=== PATIENT | female | born 1980 | race African-American/Black ===

== ENCOUNTER 2017-03-14 13:44 | Inpatient (IN) ==
--- NOTE | 2017-03-14 14:46 | Ultrasound Report ---
Exam: US OB biophysical profile Date: 03/14/2017 1:55 PM Comparison: None Indication: Increased blood pressure hypertension Findings: Fetus in the vertex presentation with a posterior placenta. heart rate 126 bpm JASMINE is 10 cm breathin movement:2 tone:2 Qualitative amniotic fluid volume:2 Impression: 1. Normal biophysical profile score 8 of 8 Ultrasound images were stored and captured PROCEDURE INTERPRETED AT [facility] DEPARTMENT OF RADIOLOGY Final Report Signed by: Dr. Kelechi Blackwell
[2017-03-14 16:01] LABS: Basophils % 0.2 % (0.0-0.8); Hemoglobin 9.1 GM/DL (12.0-16.0); Immature Granulocytes % 0.6 %; Immature Granulocytes Absolute 0.07 #; Lymphocytes # 0.6 10*3/uL (1.4-4.0); Lymphocytes % 5.2 % (21.3-54.2); Mean Corpuscular Hemoglobin 34 PG (27-34); Mean Corpuscular Volume 97.4 FL (87-102); Mean Platelet Volume 10.7 FL (9.6-12.0); Monocytes # 0.1 10*3/uL (0.11-0.8); Neutrophils # 10.7 10*3/uL (1.4-7.4); Platelet Count 110 T/CUMM (130-400); Red Blood Count 2.67 MC/CUMM (3.8-5.5); Red Cell Distribution Width 13.7 % (9.3-17.3); White Blood Count 11.5 T/CUMM (4-12)
[2017-03-14 16:10] LABS: Apearance,Urine CLOUDY (Clear); Bacteria,Urine Occasional /HPF (Few); Bilirubin,Urine Negative (Negative); Blood, Urine Large mg/dL (Negative); Glucose,Urine (UA) 50 mg/dL (Negative); Ketones,Urine 20 mg/dL (Negative); Mucus,Urine Occasional /LPF (Occasional); Nitrite,Urine Negative (Negative); Protein,Urine >=500 MG/DL; RBC,Urine 85 /HPF (0-4); Squamous Epithelial Cell,Urine Few /HPF (0-10); Urine Color Yellow (Yellow); Urine Specific Gravity 1.012 (1.001-1.035); Urine Urobilinogen < 2.0 EU/DL (0.2-1.0); WBC,Urine 44 /HPF (0-6)
[2017-03-14 16:22] LABS: Lymphocytes 6 % (20-55); Platelet Estimate Decreased; Poikilocytosis Slight; Segmented Neutrophils 92 % (50-85); Tear Drop Cells Slight; Total Cells Counted 100
[2017-03-14 16:32] LABS: INR 0.9; PT Patient Result 9.6 SECS; Partial Thromboplastin Time 26.5 SECS (0-40)
[2017-03-14 16:37] LABS: Albumin 2.7 G/DL (3.4-5.0); Bilirubin,Total 0.5 MG/DL (0.2-1.0); Calcium 8.5 MG/DL (8.5-10.1); Total Protein 6.4 G/DL (6.4-8.3)
[2017-03-14 16:38] LABS: Osmolality,Calculated 272.7 MOS/KG (273-304); Potassium 3.4 MMOL/L (3.5-5.1); Uric Acid 5.4 MG/DL (2.6-6.0)
--- NOTE | 2017-03-14 16:42 | Ultrasound Report ---
Exam: US OB >= 14 weeks fetus Date: 03/14/2017 3:22 PM Indication: Elevated blood pressure Comparison: Prior OB ultrasound dated 03/14/2017 at 2:13 PM Findings: Single fetus in cephalic presentation with cardiac activity. Heart rate is regular at 1 34 bpm. Placenta is posterior with no previa. Amniotic fluid index = 13.7 cm, which is normal BPD: 7.9 cm; 32/0 Head circumference: 30.05 cm; 33/2 Abdominal circumference: 27.75 cm; 21/6 Femur length: 6.44 cm; 33/2 Estimated weight: 1970 g (4 lbs. 5 oz.) this corresponds to the 3rd percentile for growth Cervical length: Not measured structures: Spine, stomach bubble, kidneys, bladder and cord insertion appear within normal limits. No/lips/profile and four-chamber cardiac view were not well evaluated/imaged. Maternal ovaries not visualized. Ultrasound images were captured and stored. Impression: 1. Intrauterine fetus with cardiac activity. Estimated gestational age by today's ultrasound of 34 weeks 4 days and due date of 05/05/2017. Reported gestational age 36 weeks 0 days and due date of 04/11/2017. This corresponds to a 24 day discrepancy suggestive of small for gestational age/IUGR. Continued close clinical and imaging follow-up is recommended. 2. Normal amniotic fluid volume. 3. structural survey as detailed above. PROCEDURE INTERPRETED AT [facility] DEPARTMENT OF RADIOLOGY Final Report Signed by: Kofi Harkins
[2017-03-14] MEDS: LACTATED RINGERS 1,000 ML IV SCH (21:28)
[2017-03-14] MEDS: LABETALOL 100 MG TABLET PO SCH ×2 (21:29)
[2017-03-15] MEDS: LACTATED RINGERS 1,000 ML IV SCH ×2 (04:23→11:32)
[2017-03-15 06:13] LABS: Basophils % 0.1 % (0.0-0.8); Hematocrit 23.3 VOL% (35.7-47.0); Hemoglobin 8.1 GM/DL (12.0-16.0); Immature Granulocytes % 0.8 %; Immature Granulocytes Absolute 0.12 #; Lymphocytes # 1.2 10*3/uL (1.4-4.0); Lymphocytes % 8.5 % (21.3-54.2); Mean Corpuscular HGB Conc 34.8 GM/DL (32-36); Mean Corpuscular Hemoglobin 34 PG (27-34); Mean Corpuscular Volume 96.7 FL (87-102); Monocytes # 0.8 10*3/uL (0.11-0.8); Monocytes % 5.4 % (1.7-12.7); Neutrophils # 12.2 10*3/uL (1.4-7.4); Neutrophils % 85.2 % (38.7-73.9); Platelet Count 100 T/CUMM (130-400); Red Blood Count 2.41 MC/CUMM (3.8-5.5); Red Cell Distribution Width 13.8 % (9.3-17.3); White Blood Count 14.4 T/CUMM (4-12)
[2017-03-15 06:28] LABS: Partial Thromboplastin Time 25.3 SECS (0-40)
[2017-03-15 06:31] LABS: Giant Platelets Few; Hypochromasia 1+; Platelet Estimate Decreased
[2017-03-15 06:38] LABS: Albumin 2.2 G/DL (3.4-5.0); Bilirubin,Total 0.4 MG/DL (0.2-1.0); Calcium 7.8 MG/DL (8.5-10.1); Osmolality,Calculated 276.5 MOS/KG (273-304); Potassium 3.2 MMOL/L (3.5-5.1); Total Protein 5.3 G/DL (6.4-8.3); Uric Acid 5.5 MG/DL (2.6-6.0)
--- NOTE | 2017-03-15 07:23 | Ultrasound Report ---
Exam: US OB biophysical profile Date: 03/15/2017 8:30 AM Comparison: 03/14/2017 Indication: Elevated blood pressure Findings: Fetus in vertex presentation with posterior placenta present. JASMINE 10.1 cm heart rate 132 bpm breathin movement:2 tone:2 Qualitative amniotic fluid volume:2 Impression: 1. Normal biophysical profile score 8 of 8 Ultrasound images were stored and captured PROCEDURE INTERPRETED AT [facility] DEPARTMENT OF RADIOLOGY Final Report Signed by: Dr. Kelechi Blackwell
[2017-03-15] MEDS: LABETALOL 100 MG TABLET PO SCH ×2 (08:23→20:17)
[2017-03-15] MEDS ORDERED: BUTORPHANOL 2 MG/ML VIAL IV PRN (09:35)
[2017-03-15] MEDS ORDERED: MEPERIDINE 50 MG/1 ML VIAL IV PRN (09:35)
[2017-03-15] MEDS ORDERED: ONDANSETRON 4 MG/2 ML VIAL IV PRN ×2 (09:35→14:11)
--- NOTE | 2017-03-15 09:59 | OB/GYN History & Physical ---
History of Present Illness Chief complaint: Sent from clinic for evaluation of elevated blood pressures History of present illness: Ms. Javed is a 36 year old female 8 para [id number] that presented all yesterday at 34.3 weeks gestation for evaluation of elevated blood pressures. She has a EDC of 04/22/2017 based on a 27.1 week ultrasound which she is 34.4 weeks gestation today. Her records are current, available, reviewed, and up-to- date. She was noted to have pitting edema all yesterday. She did have 3+ urine protein noted on dipstick yesterday. She was sent for overnight observation and 24-hour urine. During the night she proceeded to continue to have elevated blood pressures despite of being on labetalol 100 mg p.o. twice daily. She has 3+ pitting edema today. Increasing uric acid with a decrease in platelet count was noted on labs this morning. Her platelet count this morning was 100 which is a drop from 110 on yesterday. H&H 8.1 and 23.3 on today. Uric acid 5.5 which is an increase from 5.[address] George and she recommended to proceed with delivery secondary to preeclampsia. During the course of her she did receive late care initiating care at approximately 7 weeks gestation. Patient admitted to smoking marijuana during the course of her . She did have a low vitamin D level in which she was taken 50,000 units of vitamin D weekly in addition to 5000 units of vitamin D daily. She admitted to a history of smoking cigarettes and marijuana during the course of her , she is advanced maternal age, received late care, she did follow up with Dr. Iqbal for maternal medicine secondary to advanced maternal age patient has a long- standing history of depression secondary to loss of 1 of her children's father in a recent loss of her mother. She was referred to follow-up with counseling and started on Wellbutrin which the patient did not start the Wellbutrin or proceed to follow-up for any counseling. She did have anemia during the course of her which was done on ferrous sulfate 325 minutes p.o. 3 times daily and increase iron rich foods in her diet. She did receive her initial dose of Celestone yesterday. Labs: Blood type a positive; antibody screen negative; rubella immune; VDRL nonreactive; urine culture negative; HBsAg negative; HIV negative; GC negative; chlamydia negative; vitamin D level 7.2; urine drug screen positive for cannabinoids; 1 hour GTT 107; group beta strep pending A: IUP at 34.4 weeks gestation, category 1 heart rate tracing, preeclampsia, history of smoking, history of marijuana use, advanced maternal age, history of depression untreated, vitamin D deficiency, anemia, 3+ edema, artificial rupture of membranes with clear fluid noted. Insertion of intrauterine pressure catheter, thrombocytopenia P: Consult the Dr. [id number] to proceed with induction of labor secondary to preeclampsia. Patient informed of plan of care, explaining induction secondary to preeclampsia and will obtain a urine drug screen. Questions answered to desired level of satisfaction. We will begin induction with Pitocin per protocol. Urine drug screen obtained. Admission labs are obtained. Patient agreed with plan of care. Ampicillin 2 g will be initiated IV piggyback initially and will follow with 1 g every 4 hours until delivery. Give second dose of Celestone this morning. Home Medications Medication Instructions Recorded Confirmed Type Cholecalciferol (Vitamin D3) 5,000 unit PO DAILY 03/14/17 03/14/17 History [Vitamin D3] Ergocalciferol (Vitamin D2) 50,000 unit PO Q7DAY 03/14/17 03/14/17 History [Vitamin D2] Vit No.124/Iron/Folic 1 tablet PO DAILY 03/14/17 03/14/17 History [ Vitamin Tablet] Allergies Allergy/AdvReac Type Severity Reaction Status Date / Time No Known Allergies Allergy Verified 03/14/17 13:55 12 point system: reviewed and no additional remarkable complaints except as stated Medical,Surgical,& Family Hx - Medical History Psychological: History of: Depression - Surgical History Surgical History: noncontributory Reproductive Surgeries: Patient denies;: Gynecologic Surgery - Family History Family History: Reports;: Family Diabetes (mother), Family Hypertension (mother) , Family Stroke (mother) - Social History Smoking Status: Current every day smoker Have you smoked in the last 12 months: Yes (Multiple cigarettes per day) Frequency of Alcohol Use: None Type of Drug Use: Marijuana Marital Status: Single Lives With:: Children Functional capacity: independent ambulation Exam [employer] - Constitutional Vitals: Vital Signs Temp Pulse Resp BP Pulse Ox 03/15/17 09:25 97.8 F 109 H 20 170/96 100 03/15/17 04:00 98.0 F 79 18 128/64 03/15/17 00:00 83 18 134/60 03/14/17 20:00 97.8 F 93 H 18 131/68 03/14/17 16:00 73 20 163/87 General appearance: no acute distress - Antepartum / Post Antepartum Exam Cervix - Dilatation: 3 cm Effacement: 50% Station: 0 Rupture: Artificial rupture membranes with family, clear fluid noted Presentation: Vertex Heart Rate: 130s with spontaneous variability, BPP today 8 out of 8 [place]: Occasional, 30 seconds, mild. IUPC inserted without difficulty Breast: bilateral: normal Abdomen obstetrics: Present: bowel sounds normal Vagina: Present: normal moisture Cervix: Present: normal Uterus exam: Present: enlarged (Gravid, soft uterine tone is noted between contractions, estimated weight 4.5-5 pounds) Adnexa: bilateral: normal Anus/Rectum: Present: normal perianal skin - Head Head exam: Present: normal inspection - Neck Neck exam: Present: normal inspection - Respiratory Respiratory exam: Present: clear to auscultation bilaterally - Cardiovascular Cardiovascular exam: Present: regular rate and rhythm - GI/Abdominal GI/Abdominal exam: Present: normal bowel sounds - Extremities Exam Extremities exam: Present: normal inspection, normal capillary refill - Back Exam Back exam: Present: normal inspection - Neurological Exam Neurological exam: Present: alert, oriented X3, normal gait - Psychiatric Psychiatric exam: Present: normal affect, depressed - Skin Skin exam: Present: normal color, warm, dry Assessment and Plan (1) Advanced maternal age in multigravida Status: Acute Current Visit: Yes (2) Anemia affecting eighth Status: Acute Current Visit: Yes (3) Preeclampsia Status: Acute Current Visit: Yes (4) Vitamin D deficiency Status: Acute Current Visit: Yes (5) History of marijuana use Status: Acute Current Visit: Yes (6) Smoker Status: Acute Current Visit: Yes (7) Late onset care Status: Acute Current Visit: Yes (8) Group beta strep unknown Status: Acute Current Visit: Yes (9) Proteinuria affecting Status: Acute Current Visit: Yes (10) Proteinuria Status: Acute Current Visit: Yes (11) Thrombocytopenia affecting Status: Acute Current Visit: Yes (12) Depression Status: Acute Current Visit: Yes Results - Labs CBC & BMP: 03/15/17 05:35 03/15/17 05:35 Labs: Laboratory Tests 03/14/17 03/14/17 03/14/17 14:47 15:55 15:55 WBC 11.5 RBC 2.67 L Hgb 9.1 L Hct 26.0 L MCV 97.4 MCH 34 MCHC 35.0 RDW 13.7 Plt Count 110 L MPV 10.7 Neut % (Auto) 93.0 H Lymph % (Auto) 5.2 L [place] % (Auto) 1.0 L Eos % (Auto) 0.0 Baso % (Auto) 0.2 Neut # (Auto) 10.7 H Lymph # (Auto) 0.6 L [place] # (Auto) 0.1 L Eos # (Auto) 0.0 Baso # (Auto) 0.0 Total Counted 100 Immature Gran % 0.6 Nucleated RBC % 0.0 Immature Gran # 0.07 Segmented Neutrophils 92 H Lymphocytes 6 L Monocytes 2 Nucleated RBCs # 0.00 Platelet Estimate Decreased Giant Platelets Immature Plt Fraction 0.0 Hypochromasia Poikilocytosis Slight Tear Drop Cells Slight Morphology Comment INR 0.9 PT Patient/Control Mix 9.6 Fibrinogen 357 Circ Anticoag PTT 26.5 Sodium Potassium Chloride Carbon Dioxide Anion Gap BUN Creatinine GFR Calculation BUN/Creatinine Ratio Glucose Calculated Osmolality Uric Acid Calcium Total Bilirubin AST ALT Alkaline Phosphatase Total Protein Albumin Globulin Albumin/Globulin Ratio Urine Color Yellow Urine Appearance Cloudy Urine pH 5.0 Ur Specific [place] 1.012 Urine Protein >=500 Urine Glucose (UA) 50 Urine Ketones 20 Urine Blood Large Urine Nitrate Negative Urine Bilirubin Negative Urine Urobilinogen < 2.0 H Urine Leukocytes Trace Urine RBC 85 Urine WBC 44 Ur Squamous Epith Cells Few Urine Bacteria Occasional Urine Mucus Occasional Urine Yeast (Budding) Occasional Ur Culture Indicated? Results to follow 03/14/17 03/15/17 03/15/17 15:55 05:35 05:35 WBC 14.4 H RBC 2.41 L Hgb 8.1 L Hct 23.3 L MCV 96.7 MCH 34 MCHC 34.8 RDW 13.8 Plt Count 100 L MPV 12.0 Neut % (Auto) 85.2 H Lymph % (Auto) 8.5 L [place] % (Auto) 5.4 Eos % (Auto) 0.0 Baso % (Auto) 0.1 Neut # (Auto) 12.2 H Lymph # (Auto) 1.2 L [place] # (Auto) 0.8 Eos # (Auto) 0.0 Baso # (Auto) 0.0 Total Counted Immature Gran % 0.8 Nucleated RBC % 0.0 Immature Gran # 0.12 Segmented Neutrophils Lymphocytes Monocytes Nucleated RBCs # 0.00 Platelet Estimate Decreased Giant Platelets Few Immature Plt Fraction 9.8 H Hypochromasia 1+ Poikilocytosis Tear Drop Cells Morphology Comment INR 1.0 PT Patient/Control Mix 10.0 Fibrinogen 306 Circ Anticoag PTT 25.3 Sodium 138 Potassium 3.4 L Chloride 105 Carbon Dioxide 25 Anion Gap 11.4 BUN 8 Creatinine 1.00 GFR Calculation 90 BUN/Creatinine Ratio 8.00 Glucose 96 Calculated Osmolality 272.7 L Uric Acid 5.4 Calcium 8.5 Total Bilirubin 0.50 AST 28 ALT 30 Alkaline Phosphatase 100 Total Protein 6.4 Albumin 2.7 L Globulin 3.7 H Albumin/Globulin Ratio 0.7 L Urine Color Urine Appearance Urine pH Ur Specific [place] Urine Protein Urine Glucose (UA) Urine Ketones Urine Blood Urine Nitrate Urine Bilirubin Urine Urobilinogen Urine Leukocytes Urine RBC Urine WBC Ur Squamous Epith Cells Urine Bacteria Urine Mucus Urine Yeast (Budding) Ur Culture Indicated? 03/15/17 05:35 WBC RBC Hgb Hct MCV MCH MCHC RDW Plt Count MPV Neut % (Auto) Lymph % (Auto) [place] % (Auto) Eos % (Auto) Baso % (Auto) Neut # (Auto) Lymph # (Auto) [place] # (Auto) Eos # (Auto) Baso # (Auto) Total Counted Immature Gran % Nucleated RBC % Immature Gran # Segmented Neutrophils Lymphocytes Monocytes Nucleated RBCs # Platelet Estimate Giant Platelets Immature Plt Fraction Hypochromasia Poikilocytosis Tear Drop Cells Morphology Comment INR PT Patient/Control Mix Fibrinogen Circ Anticoag PTT Sodium 139 Potassium 3.2 L Chloride 100 Carbon Dioxide 21 Anion Gap 21.2 H BUN 11 Creatinine 1.00 GFR Calculation 90 BUN/Creatinine Ratio 11.00 Glucose 109 H Calculated Osmolality 276.5 Uric Acid 5.5 Calcium 7.8 L Total Bilirubin 0.40 AST 19 ALT 21 Alkaline Phosphatase 80 Total Protein 5.3 L Albumin 2.2 L Globulin 3.1 Albumin/Globulin Ratio 0.7 L Urine Color Urine Appearance Urine pH Ur Specific [place] Urine Protein Urine Glucose (UA) Urine Ketones Urine Blood Urine Nitrate Urine Bilirubin Urine Urobilinogen Urine Leukocytes Urine RBC Urine WBC Ur Squamous Epith Cells Urine Bacteria Urine Mucus Urine Yeast (Budding) Ur Culture Indicated?
[2017-03-15] MEDS ORDERED: LACTATED RINGERS 1,000 ML IV SCH (10:00)
[2017-03-15] MEDS ORDERED: OXYTOCIN/LR 20 UNIT/1,000 ML BAG IV SCH (10:00)
[2017-03-15] MEDS ORDERED: AMPICILLIN INJ 2,000 MG in SODIUM CHLORIDE 0.9% 100 ML IV ONE (10:00)
[2017-03-15] MEDS ORDERED: BETAMETH SODIUM PHOS/ACETATE 30 MG/5 ML VIAL IM ONE (10:21)
[2017-03-15 10:36] LABS: Barbiturates Screen,Urine Negative (Negative); Benzodiazepines Screen,Urine Negative (Negative); Cannabinoid Screen,Urine Positive (Negative); Opiate Screen,Urine Negative (Negative); Phencyclidine Screen,Urine Negative (Negative)
[2017-03-15] MEDS ORDERED: LIDOCAINE 1% 50 ML VIAL ONE (13:36)
[2017-03-15] MEDS ORDERED: miSOPROStol 200 MCG TABLET ONE (13:37)
[2017-03-15] MEDS ORDERED: AMPICILLIN INJ 1,000 MG in SODIUM CHLORIDE 0.9% 100 ML IV SCH (14:00)
--- NOTE | 2017-03-15 14:09 | Operative Note ---
Date of procedure: 03/15/17 Pre-op diagnosis: IUP at 34.4 weeks, preeclampsia, advanced maternal age, smoker Post-op diagnosis: other (Normal spontaneous vaginal delivery) Procedure: Patient received right lateral side-lying position. Patient was then placed in dorsal lithotomy position. Patient then placed in stirrups, draped and prepped. At 1345, head delivered in MADYSON position, nuchal cord 1 noted and unable to reduce the nuchal cord. Baby was somersaulted through the cord. Anterior then posterior shoulders were delivered easily without difficulty. delivered in usual fashion and secured with good tone and cry noted. Mouth and nose bulb suctioned. Milking of the cord performed, cord gases obtained, cord doubly clamped and cut. Female placed in radiant warmer and attended by nursery nurses. At 1348, spontaneous delivery of placenta via Cami position, with 3 vessel cord noted, normal cord insertion, with minimal calcifications, small placenta noted. Hemostasis maintained with fundal massage and Pitocin 20 units in 1000 cc of lactated Ringer's. Uterine suite performed with small clots removed. Uterus remains firm with minimal bleeding noted. Perineum inspected and noted intact without any lacerations noted. Female with Apgars 9 and 9 weighing 4 pounds and 2 ounces at 1865 grams. Mother and baby stable. Female taken to intensive care unit. Mother desires to bottle feed. Anesthesia: none Surgeon / Physician: Jennifer Lowry Estimated blood loss: minimal (150cc) Specimens: other (Placenta to pathology secondary to advanced maternal age, preeclampsia, and late care, group beta strep unknown, smoker, history of marijuana use) Condition: stable Disposition: floor Results - Labs CBC & BMP: 03/15/17 05:35 03/15/17 05:35 Labs: Laboratory Tests 03/14/17 03/14/17 03/14/17 14:47 15:55 15:55 WBC 11.5 RBC 2.67 L Hgb 9.1 L Hct 26.0 L MCV 97.4 MCH 34 MCHC 35.0 RDW 13.7 Plt Count 110 L MPV 10.7 Neut % (Auto) 93.0 H Lymph % (Auto) 5.2 L [place] % (Auto) 1.0 L Eos % (Auto) 0.0 Baso % (Auto) 0.2 Neut # (Auto) 10.7 H Lymph # (Auto) 0.6 L [place] # (Auto) 0.1 L Eos # (Auto) 0.0 Baso # (Auto) 0.0 Total Counted 100 Immature Gran % 0.6 Nucleated RBC % 0.0 Immature Gran # 0.07 Segmented Neutrophils 92 H Lymphocytes 6 L Monocytes 2 Nucleated RBCs # 0.00 Platelet Estimate Decreased Giant Platelets Immature Plt Fraction 0.0 Hypochromasia Poikilocytosis Slight Tear Drop Cells Slight Morphology Comment INR 0.9 PT Patient/Control Mix 9.6 Fibrinogen 357 Circ Anticoag PTT 26.5 Sodium Potassium Chloride Carbon Dioxide Anion Gap BUN Creatinine GFR Calculation BUN/Creatinine Ratio Glucose Calculated Osmolality Uric Acid Calcium Total Bilirubin AST ALT Alkaline Phosphatase Total Protein Albumin Globulin Albumin/Globulin Ratio Urine Color Yellow Urine Appearance Cloudy Urine pH 5.0 Ur Specific [place] 1.012 Urine Protein >=500 Urine Glucose (UA) 50 Urine Ketones 20 Urine Blood Large Urine Nitrate Negative Urine Bilirubin Negative Urine Urobilinogen < 2.0 H Urine Leukocytes Trace Urine RBC 85 Urine WBC 44 Ur Squamous Epith Cells Few Urine Bacteria Occasional Urine Mucus Occasional Urine Yeast (Budding) Occasional Ur Culture Indicated? Results to follow Urine Opiates Screen Ur Barbiturates Screen Ur Phencyclidine Scrn U Amphetamine/Methamph U Benzodiazepines Scrn U Cocaine Metab Screen U Cannabinoids Screen Blood Type Antibody Screen 03/14/17 03/15/17 03/15/17 15:55 05:35 05:35 WBC 14.4 H RBC 2.41 L Hgb 8.1 L Hct 23.3 L MCV 96.7 MCH 34 MCHC 34.8 RDW 13.8 Plt Count 100 L MPV 12.0 Neut % (Auto) 85.2 H Lymph % (Auto) 8.5 L [place] % (Auto) 5.4 Eos % (Auto) 0.0 Baso % (Auto) 0.1 Neut # (Auto) 12.2 H Lymph # (Auto) 1.2 L [place] # (Auto) 0.8 Eos # (Auto) 0.0 Baso # (Auto) 0.0 Total Counted Immature Gran % 0.8 Nucleated RBC % 0.0 Immature Gran # 0.12 Segmented Neutrophils Lymphocytes Monocytes Nucleated RBCs # 0.00 Platelet Estimate Decreased Giant Platelets Few Immature Plt Fraction 9.8 H Hypochromasia 1+ Poikilocytosis Tear Drop Cells Morphology Comment INR 1.0 PT Patient/Control Mix 10.0 Fibrinogen 306 Circ Anticoag PTT 25.3 Sodium 138 Potassium 3.4 L Chloride 105 Carbon Dioxide 25 Anion Gap 11.4 BUN 8 Creatinine 1.00 GFR Calculation 90 BUN/Creatinine Ratio 8.00 Glucose 96 Calculated Osmolality 272.7 L Uric Acid 5.4 Calcium 8.5 Total Bilirubin 0.50 AST 28 ALT 30 Alkaline Phosphatase 100 Total Protein 6.4 Albumin 2.7 L Globulin 3.7 H Albumin/Globulin Ratio 0.7 L Urine Color Urine Appearance Urine pH Ur Specific [place] Urine Protein Urine Glucose (UA) Urine Ketones Urine Blood Urine Nitrate Urine Bilirubin Urine Urobilinogen Urine Leukocytes Urine RBC Urine WBC Ur Squamous Epith Cells Urine Bacteria Urine Mucus Urine Yeast (Budding) Ur Culture Indicated? Urine Opiates Screen Ur Barbiturates Screen Ur Phencyclidine Scrn U Amphetamine/Methamph U Benzodiazepines Scrn U Cocaine Metab Screen U Cannabinoids Screen Blood Type Antibody Screen 03/15/17 03/15/17 03/15/17 05:35 09:35 10:15 WBC RBC Hgb Hct MCV MCH MCHC RDW Plt Count MPV Neut % (Auto) Lymph % (Auto) [place] % (Auto) Eos % (Auto) Baso % (Auto) Neut # (Auto) Lymph # (Auto) [place] # (Auto) Eos # (Auto) Baso # (Auto) Total Counted Immature Gran % Nucleated RBC % Immature Gran # Segmented Neutrophils Lymphocytes Monocytes Nucleated RBCs # Platelet Estimate Giant Platelets Immature Plt Fraction Hypochromasia Poikilocytosis Tear Drop Cells Morphology Comment INR PT Patient/Control Mix Fibrinogen Circ Anticoag PTT Sodium 139 Potassium 3.2 L Chloride 100 Carbon Dioxide 21 Anion Gap 21.2 H BUN 11 Creatinine 1.00 GFR Calculation 90 BUN/Creatinine Ratio 11.00 Glucose 109 H Calculated Osmolality 276.5 Uric Acid 5.5 Calcium 7.8 L Total Bilirubin 0.40 AST 19 ALT 21 Alkaline Phosphatase 80 Total Protein 5.3 L Albumin 2.2 L Globulin 3.1 Albumin/Globulin Ratio 0.7 L Urine Color Urine Appearance Urine pH Ur Specific [place] Urine Protein Urine Glucose (UA) Urine Ketones Urine Blood Urine Nitrate Urine Bilirubin Urine Urobilinogen Urine Leukocytes Urine RBC Urine WBC Ur Squamous Epith Cells Urine Bacteria Urine Mucus Urine Yeast (Budding) Ur Culture Indicated? Urine Opiates Screen Negative Ur Barbiturates Screen Negative Ur Phencyclidine Scrn Negative U Amphetamine/Methamph Negative U Benzodiazepines Scrn Negative U Cocaine Metab Screen Negative U Cannabinoids Screen Positive H Blood Type A POSITIVE Antibody Screen Negative Discharge Plan - Discharge Medications No Action Cholecalciferol (Vitamin D3) [Vitamin D3] 5,000 unit PO DAILY Vit No.124/Iron/Folic [ Vitamin Tablet] 1 tablet PO DAILY Ergocalciferol (Vitamin D2) [Vitamin D2] 50,000 unit PO Q7DAY - Follow Up or Referral - Forms/Instructions
[2017-03-15] MEDS ORDERED: HYDROCORTISONE 2.5% RECTAL CREAM 30 GM TUBE TOP PRN (14:11)
[2017-03-15] MEDS ORDERED: BENZOCAINE 20%/MENTHOL 0.5% SPRAY 56 GM CAN TOP PRN (14:11)
[2017-03-15] MEDS ORDERED: ACETAMINOPHEN 325 MG TABLET PO PRN (14:11)
[2017-03-15] MEDS ORDERED: OXYTOCIN/LR 20 UNIT/1,000 ML BAG IV ONE (14:11)
[2017-03-15] MEDS ORDERED: LANOLIN 50% CREAM 0.3 OZ TUBE TOP PRN (14:11)
[2017-03-15] MEDS ORDERED: BISACODYL 10 MG SUPP RECTAL PRN (14:11)
[2017-03-15] MEDS ORDERED: oxyCODONE/ACETAMINOPHEN 5-325 MG TABLET PO PRN (14:11)
[2017-03-15 14:24] LABS: Cord Arterial Blood HCO3 25.2 MMOL/L
[2017-03-15 14:27] LABS: Cord Venous Blood HCO3 21.9 MMOL/L; Cord Venous Blood PCO2 36.6 MMHG; Cord Venous Blood PO2 26.2 MMHG
[2017-03-15] MEDS ORDERED: DIPH/TET/ACEL PERT BOOSTER VACCINE 0.5 ML VIAL IM ONE (15:00)
[2017-03-15] MEDS ORDERED: WITCH HAZEL PADS 100/JAR TOP PRN (15:00)
[2017-03-15] MEDS ORDERED: RHO(D) IMMUNE GLOBULIN 300 MCG SYRINGE IM ONE (15:00)
[2017-03-15] MEDS ORDERED: MEASLES/MUMPS/RUBELLA VACCINE 0.5 ML VIAL SUBCUT ONE (15:00)
[2017-03-15] MEDS: IBUPROFEN 800 MG TABLET PO PRN (15:23)
[2017-03-15] MEDS: oxyCODONE/ACETAMINOPHEN 5-325 MG TABLET PO PRN ×2 (15:24→21:59)
[2017-03-15] MEDS: buPROPion XL 150 MG TABLET PO SCH (16:34)
[2017-03-15] MEDS: FERROUS SULFATE 325 MG TABLET PO SCH ×2 (16:39→20:17)
[2017-03-15] MEDS: DOCUSATE SODIUM 100 MG CAPSULE PO SCH (20:17)
[2017-03-16] MEDS: IBUPROFEN 800 MG TABLET PO PRN ×2 (01:54→12:01)
[2017-03-16] MEDS: oxyCODONE/ACETAMINOPHEN 5-325 MG TABLET PO PRN ×2 (03:40→12:01)
[2017-03-16 05:11] LABS: Basophils % 0.1 % (0.0-0.8); Eosinophils % 0.1 % (0.00-10.9); Hematocrit 19.6 VOL% (35.7-47.0); Immature Granulocytes % 0.9 %; Immature Granulocytes Absolute 0.18 #; Lymphocytes # 1.5 10*3/uL (1.4-4.0); Lymphocytes % 7.8 % (21.3-54.2); Mean Corpuscular HGB Conc 35.2 GM/DL (32-36); Mean Corpuscular Hemoglobin 34 PG (27-34); Mean Corpuscular Volume 97.5 FL (87-102); Mean Platelet Volume 12.6 FL (9.6-12.0); Monocytes # 1.1 10*3/uL (0.11-0.8); Monocytes % 5.7 % (1.7-12.7); Neutrophils # 16.3 10*3/uL (1.4-7.4); Neutrophils % 85.4 % (38.7-73.9); Red Blood Count 2.01 MC/CUMM (3.8-5.5); Red Cell Distribution Width 14.1 % (9.3-17.3); White Blood Count 19.1 T/CUMM (4-12)
[2017-03-16 05:12] LABS: Hemoglobin 6.9 GM/DL (12.0-16.0); Platelet Count 81 T/CUMM (130-400)
[2017-03-16 05:40] LABS: Acanthocytes Few; Anisocytosis 2+; Band Neutrophils 3 % (0-10); Lymphocytes 8 % (20-55); Macrocytosis 2+; Platelet Estimate Decreased; Segmented Neutrophils 83 % (50-85); Total Cells Counted 100
[2017-03-16] MEDS ORDERED: SODIUM CHLORIDE 0.9% 250 ML IV PRN (06:57)
[2017-03-16] MEDS ORDERED: FUROSEMIDE 20 MG/2 ML VIAL IV PRN (06:57)
[2017-03-16] MEDS: buPROPion XL 150 MG TABLET PO SCH (08:51)
[2017-03-16] MEDS: FERROUS SULFATE 325 MG TABLET PO SCH ×3 (08:51→22:06)
[2017-03-16] MEDS: LABETALOL 100 MG TABLET PO SCH ×2 (08:51→22:04)
[2017-03-16] MEDS: DOCUSATE SODIUM 100 MG CAPSULE PO SCH ×2 (08:51→22:04)
[2017-03-16] MEDS: CHOLECALCIFEROL 1,000 UNIT TABLET PO SCH (08:55)
--- NOTE | 2017-03-16 10:33 | Discharge Summary ---
Hospital Course - Hospital Course Hospital Course: Patient is a 36-year-old 8 now para 7017 that presented at 34.3 weeks for induction of labor secondary to preeclampsia. Labor progressed with blood pressures being elevated for patient to deliver a 4 lbs. 2 oz. female with Apgars 9 and 9. Mother is bottlefeeding. Her H&H has dropped from 8.1 and 23.3 to 6.9 and 19.6. Patient did receive 2 units of packed red blood cells as well as swelling milligrams of Lasix. She had 3+ pitting edema to both lower extremities. Lungs were clear she has been stable. Patient is depressed secondary to long-standing history of depression and social media project manager were consulted. She will be discharged home with Wellbutrin, ibuprofen, and ferrous sulfate. She will follow-up with me in 1 week. Diagnosis - Discharge Diagnosis (1) Advanced maternal age in multigravida Status: Acute (2) Anemia affecting eighth Status: Acute (3) Preeclampsia Status: Acute (4) Vitamin D deficiency Status: Acute (5) History of marijuana use Status: Acute (6) Smoker Status: Acute (7) Late onset care Status: Acute (8) Group beta strep unknown Status: Acute (9) Proteinuria affecting Status: Acute (10) Proteinuria Status: Acute (11) Thrombocytopenia affecting Status: Acute (12) Depression Status: Acute (13) Normal spontaneous vaginal delivery Status: Acute (14) Anemia Status: Acute Discharge Plan - Discharge Data Disposition: Disch To Home/Self Care Condition at Discharge: Stable Discharge Diet: advance to your usual diet Activity: resume usual activities as tolerated Hygiene: may shower Driving: not for (2 weeks) Contact your physician if you experience:: fever over 101, Difficulty voiding, Redness or swelling, Nausea/Vomiting, Shortness of breath, Bleeding, pain uncontrolled by pain medications - Discharge Medications New Ferrous Sulfate Tab [Feosol Original Tab] 325 mg PO TID #90 tablet buPROPion XL [Wellbutrin Xl] 150 mg PO DAILY #30 tablet Labetalol Tab [Trandate Tab] 100 mg PO BID #60 tablet No Action Cholecalciferol (Vitamin D3) [Vitamin D3] 5,000 unit PO DAILY Vit No.124/Iron/Folic [ Vitamin Tablet] 1 tablet PO DAILY Ergocalciferol (Vitamin D2) [Vitamin D2] 50,000 unit PO Q7DAY - Follow Up or Referral Follow Up: Jennifer Lowry CFNP [Advanced Practice Nurse] - 1 Week - Forms/Instructions Exam - Constitutional Vitals: Period Temp Pulse Resp BP Sys/Esquivel Pulse Ox Last 24 Hr 97.3 F-98.7 F 66-91 16-20 114-157/67-91 100-100 General appearance: no acute distress - Head Head exam: Present: normal inspection - Eye Eye exam: Present: conjunctival injection - ENT ENT exam: Present: normal exam, normal external ear exam - Neck Neck exam: Present: normal inspection - Respiratory Respiratory exam: Present: clear to auscultation bilaterally - Cardiovascular Cardiovascular exam: Present: regular rate and rhythm - GI/Abdominal GI/Abdominal exam: Present: normal bowel sounds (Uterus firm, midline, 2 finger breaths below the umbilicus. Scant rubra noted on perineum.) - Extremities Exam Extremities exam: Present: normal inspection, normal capillary refill, full ROM - Back Exam Back exam: Present: normal inspection - Neurological Exam Neurological exam: Present: alert, oriented X3, normal gait - Psychiatric Psychiatric exam: Present: normal affect (Patient is smiling throughout conversation today.), depressed - Skin Skin exam: Present: normal color, warm, dry Discharge Results Procedures and tests throughout hospitalization: Pending Orders 03/16/17 04:34 Red Blood Cells Leuko Red Stat 03/17/17 04:00 Comp Blood Count Auto Diff IN AM Laboratory Tests 03/14/17 03/14/17 03/14/17 14:47 15:55 15:55 WBC 11.5 RBC 2.67 L Hgb 9.1 L Hct 26.0 L MCV 97.4 MCH 34 MCHC 35.0 RDW 13.7 Plt Count 110 L MPV 10.7 Neut % (Auto) 93.0 H Lymph % (Auto) 5.2 L [place] % (Auto) 1.0 L Eos % (Auto) 0.0 Baso % (Auto) 0.2 Neut # (Auto) 10.7 H Lymph # (Auto) 0.6 L [place] # (Auto) 0.1 L Eos # (Auto) 0.0 Baso # (Auto) 0.0 Total Counted 100 Immature Gran % 0.6 Nucleated RBC % 0.0 Immature Gran # 0.07 Segmented Neutrophils 92 H Band Neutrophils Lymphocytes 6 L Monocytes 2 Nucleated RBCs # 0.00 Platelet Estimate Decreased Giant Platelets Immature Plt Fraction 0.0 Hypochromasia Poikilocytosis Slight Anisocytosis Macrocytosis Tear Drop Cells Slight Acanthocytes (Spur) Morphology Comment INR 0.9 PT Patient/Control Mix 9.6 Fibrinogen 357 Circ Anticoag PTT 26.5 Cord ABG pH Cord ABG pCO2 Cord ABG pO2 Cord ABG HCO3 Cord ABG Total CO2 Cord ABG Base Excess Cord VBG pH Cord VBG pCO2 Cord VBG pO2 Cord VBG HCO3 Cord VBG Total CO2 Cord VBG Base Excess Sodium Potassium Chloride Carbon Dioxide Anion Gap BUN Creatinine GFR Calculation BUN/Creatinine Ratio Glucose Calculated Osmolality Uric Acid Calcium Total Bilirubin AST ALT Alkaline Phosphatase Total Protein Albumin Globulin Albumin/Globulin Ratio Urine Color Yellow Urine Appearance Cloudy Urine pH 5.0 Ur Specific [place] 1.012 Urine Protein >=500 Urine Glucose (UA) 50 Urine Ketones 20 Urine Blood Large Urine Nitrate Negative Urine Bilirubin Negative Urine Urobilinogen < 2.0 H Urine Leukocytes Trace Urine RBC 85 Urine WBC 44 Ur Squamous Epith Cells Few Urine Bacteria Occasional Urine Mucus Occasional Urine Yeast (Budding) Occasional Ur Culture Indicated? Results to follow Urine Opiates Screen Ur Barbiturates Screen Ur Phencyclidine Scrn U Amphetamine/Methamph U Benzodiazepines Scrn U Cocaine Metab Screen U Cannabinoids Screen Blood Type Antibody Screen Crossmatch Blood Bank Comment 03/14/17 03/15/17 03/15/17 15:55 05:35 05:35 WBC 14.4 H RBC 2.41 L Hgb 8.1 L Hct 23.3 L MCV 96.7 MCH 34 MCHC 34.8 RDW 13.8 Plt Count 100 L MPV 12.0 Neut % (Auto) 85.2 H Lymph % (Auto) 8.5 L [place] % (Auto) 5.4 Eos % (Auto) 0.0 Baso % (Auto) 0.1 Neut # (Auto) 12.2 H Lymph # (Auto) 1.2 L [place] # (Auto) 0.8 Eos # (Auto) 0.0 Baso # (Auto) 0.0 Total Counted Immature Gran % 0.8 Nucleated RBC % 0.0 Immature Gran # 0.12 Segmented Neutrophils Band Neutrophils Lymphocytes Monocytes Nucleated RBCs # 0.00 Platelet Estimate Decreased Giant Platelets Few Immature Plt Fraction 9.8 H Hypochromasia 1+ Poikilocytosis Anisocytosis Macrocytosis Tear Drop Cells Acanthocytes (Spur) Morphology Comment INR 1.0 PT Patient/Control Mix 10.0 Fibrinogen 306 Circ Anticoag PTT 25.3 Cord ABG pH Cord ABG pCO2 Cord ABG pO2 Cord ABG HCO3 Cord ABG Total CO2 Cord ABG Base Excess Cord VBG pH Cord VBG pCO2 Cord VBG pO2 Cord VBG HCO3 Cord VBG Total CO2 Cord VBG Base Excess Sodium 138 Potassium 3.4 L Chloride 105 Carbon Dioxide 25 Anion Gap 11.4 BUN 8 Creatinine 1.00 GFR Calculation 90 BUN/Creatinine Ratio 8.00 Glucose 96 Calculated Osmolality 272.7 L Uric Acid 5.4 Calcium 8.5 Total Bilirubin 0.50 AST 28 ALT 30 Alkaline Phosphatase 100 Total Protein 6.4 Albumin 2.7 L Globulin 3.7 H Albumin/Globulin Ratio 0.7 L Urine Color Urine Appearance Urine pH Ur Specific [place] Urine Protein Urine Glucose (UA) Urine Ketones Urine Blood Urine Nitrate Urine Bilirubin Urine Urobilinogen Urine Leukocytes Urine RBC Urine WBC Ur Squamous Epith Cells Urine Bacteria Urine Mucus Urine Yeast (Budding) Ur Culture Indicated? Urine Opiates Screen Ur Barbiturates Screen Ur Phencyclidine Scrn U Amphetamine/Methamph U Benzodiazepines Scrn U Cocaine Metab Screen U Cannabinoids Screen Blood Type Antibody Screen Crossmatch Blood Bank Comment 03/15/17 03/15/17 03/15/17 05:35 09:35 10:15 WBC RBC Hgb Hct MCV MCH MCHC RDW Plt Count MPV Neut % (Auto) Lymph % (Auto) [place] % (Auto) Eos % (Auto) Baso % (Auto) Neut # (Auto) Lymph # (Auto) [place] # (Auto) Eos # (Auto) Baso # (Auto) Total Counted Immature Gran % Nucleated RBC % Immature Gran # Segmented Neutrophils Band Neutrophils Lymphocytes Monocytes Nucleated RBCs # Platelet Estimate Giant Platelets Immature Plt Fraction Hypochromasia Poikilocytosis Anisocytosis Macrocytosis Tear Drop Cells Acanthocytes (Spur) Morphology Comment INR PT Patient/Control Mix Fibrinogen Circ Anticoag PTT Cord ABG pH Cord ABG pCO2 Cord ABG pO2 Cord ABG HCO3 Cord ABG Total CO2 Cord ABG Base Excess Cord VBG pH Cord VBG pCO2 Cord VBG pO2 Cord VBG HCO3 Cord VBG Total CO2 Cord VBG Base Excess Sodium 139 Potassium 3.2 L Chloride 100 Carbon Dioxide 21 Anion Gap 21.2 H BUN 11 Creatinine 1.00 GFR Calculation 90 BUN/Creatinine Ratio 11.00 Glucose 109 H Calculated Osmolality 276.5 Uric Acid 5.5 Calcium 7.8 L Total Bilirubin 0.40 AST 19 ALT 21 Alkaline Phosphatase 80 Total Protein 5.3 L Albumin 2.2 L Globulin 3.1 Albumin/Globulin Ratio 0.7 L Urine Color Urine Appearance Urine pH Ur Specific [place] Urine Protein Urine Glucose (UA) Urine Ketones Urine Blood Urine Nitrate Urine Bilirubin Urine Urobilinogen Urine Leukocytes Urine RBC Urine WBC Ur Squamous Epith Cells Urine Bacteria Urine Mucus Urine Yeast (Budding) Ur Culture Indicated? Urine Opiates Screen Negative Ur Barbiturates Screen Negative Ur Phencyclidine Scrn Negative U Amphetamine/Methamph Negative U Benzodiazepines Scrn Negative U Cocaine Metab Screen Negative U Cannabinoids Screen Positive H Blood Type A POSITIVE Antibody Screen Negative Crossmatch Blood Bank Comment 03/15/17 03/15/17 03/16/17 13:45 13:45 04:34 WBC 19.1 H D RBC 2.01 L Hgb 6.9 L Hct 19.6 L MCV 97.5 MCH 34 MCHC 35.2 RDW 14.1 Plt Count 81 L MPV 12.6 H Neut % (Auto) 85.4 H Lymph % (Auto) 7.8 L [place] % (Auto) 5.7 Eos % (Auto) 0.1 Baso % (Auto) 0.1 Neut # (Auto) 16.3 H Lymph # (Auto) 1.5 [place] # (Auto) 1.1 H Eos # (Auto) 0.0 Baso # (Auto) 0.0 Total Counted 100 Immature Gran % 0.9 Nucleated RBC % 0.0 Immature Gran # 0.18 Segmented Neutrophils 83 Band Neutrophils 3 Lymphocytes 8 L Monocytes 6 Nucleated RBCs # 0.00 Platelet Estimate Decreased Giant Platelets Immature Plt Fraction 12.2 H Hypochromasia Poikilocytosis Anisocytosis 2+ Macrocytosis 2+ Tear Drop Cells Acanthocytes (Spur) Few Morphology Comment INR PT Patient/Control Mix Fibrinogen Circ Anticoag PTT Cord ABG pH 7.303 Cord ABG pCO2 52.1 Cord ABG pO2 6.9 Cord ABG HCO3 25.2 Cord ABG Total CO2 26.8 Cord ABG Base Excess -1.9 Cord VBG pH 7.395 Cord VBG pCO2 36.6 Cord VBG pO2 26.2 Cord VBG HCO3 21.9 Cord VBG Total CO2 23.0 Cord VBG Base Excess -2.4 Sodium Potassium Chloride Carbon Dioxide Anion Gap BUN Creatinine GFR Calculation BUN/Creatinine Ratio Glucose Calculated Osmolality Uric Acid Calcium Total Bilirubin AST ALT Alkaline Phosphatase Total Protein Albumin Globulin Albumin/Globulin Ratio Urine Color Urine Appearance Urine pH Ur Specific [place] Urine Protein Urine Glucose (UA) Urine Ketones Urine Blood Urine Nitrate Urine Bilirubin Urine Urobilinogen Urine Leukocytes Urine RBC Urine WBC Ur Squamous Epith Cells Urine Bacteria Urine Mucus Urine Yeast (Budding) Ur Culture Indicated? Urine Opiates Screen Ur Barbiturates Screen Ur Phencyclidine Scrn U Amphetamine/Methamph U Benzodiazepines Scrn U Cocaine Metab Screen U Cannabinoids Screen Blood Type Antibody Screen Crossmatch Blood Bank Comment 03/16/17 03/16/17 04:34 Unknown WBC RBC Hgb Hct MCV MCH MCHC RDW Plt Count MPV Neut % (Auto) Lymph % (Auto) [place] % (Auto) Eos % (Auto) Baso % (Auto) Neut # (Auto) Lymph # (Auto) [place] # (Auto) Eos # (Auto) Baso # (Auto) Total Counted Immature Gran % Nucleated RBC % Immature Gran # Segmented Neutrophils Band Neutrophils Lymphocytes Monocytes Nucleated RBCs # Platelet Estimate Giant Platelets Immature Plt Fraction Hypochromasia Poikilocytosis Anisocytosis Macrocytosis Tear Drop Cells Acanthocytes (Spur) Morphology Comment INR PT Patient/Control Mix Fibrinogen Circ Anticoag PTT Cord ABG pH Cord ABG pCO2 Cord ABG pO2 Cord ABG HCO3 Cord ABG Total CO2 Cord ABG Base Excess Cord VBG pH Cord VBG pCO2 Cord VBG pO2 Cord VBG HCO3 Cord VBG Total CO2 Cord VBG Base Excess Sodium Potassium Chloride Carbon Dioxide Anion Gap BUN Creatinine GFR Calculation BUN/Creatinine Ratio Glucose Calculated Osmolality Uric Acid Calcium Total Bilirubin AST ALT Alkaline Phosphatase Total Protein Albumin Globulin Albumin/Globulin Ratio Urine Color Urine Appearance Urine pH Ur Specific [place] Urine Protein Urine Glucose (UA) Urine Ketones Urine Blood Urine Nitrate Urine Bilirubin Urine Urobilinogen Urine Leukocytes Urine RBC Urine WBC Ur Squamous Epith Cells Urine Bacteria Urine Mucus Urine Yeast (Budding) Ur Culture Indicated? Urine Opiates Screen Ur Barbiturates Screen Ur Phencyclidine Scrn U Amphetamine/Methamph U Benzodiazepines Scrn U Cocaine Metab Screen U Cannabinoids Screen Blood Type Cancelled A POSITIVE Antibody Screen Cancelled Crossmatch See Detail Blood Bank Comment Cancelled 6.9 and 19.6 Labs on day of discharge: Labs from last 24 hours 03/16/17 03/16/17 03/16/17 Unknown 04:34 04:34 WBC 19.1 H D RBC 2.01 L Hgb 6.9 L Hct 19.6 L MCV 97.5 MCH 34 MCHC 35.2 RDW 14.1 Plt Count 81 L MPV 12.6 H Neut % (Auto) 85.4 H Lymph % (Auto) 7.8 L [place] % (Auto) 5.7 Eos % (Auto) 0.1 Baso % (Auto) 0.1 Neut # (Auto) 16.3 H Lymph # (Auto) 1.5 [place] # (Auto) 1.1 H Eos # (Auto) 0.0 Baso # (Auto) 0.0 Total Counted 100 Immature Gran % 0.9 Nucleated RBC % 0.0 Immature Gran # 0.18 Segmented Neutrophils 83 Band Neutrophils 3 Lymphocytes 8 L Monocytes 6 Nucleated RBCs # 0.00 Platelet Estimate Decreased Immature Plt Fraction 12.2 H Anisocytosis 2+ Macrocytosis 2+ Acanthocytes (Spur) Few Cord ABG pH Cord ABG pCO2 Cord ABG pO2 Cord ABG HCO3 Cord ABG Total CO2 Cord ABG Base Excess Cord VBG pH Cord VBG pCO2 Cord VBG pO2 Cord VBG HCO3 Cord VBG Total CO2 Cord VBG Base Excess Urine Opiates Screen Ur Barbiturates Screen Ur Phencyclidine Scrn U Amphetamine/Methamph U Benzodiazepines Scrn U Cocaine Metab Screen U Cannabinoids Screen Blood Type A POSITIVE Cancelled Antibody Screen Cancelled Crossmatch See Detail Blood Bank Comment Cancelled 03/15/17 03/15/17 03/15/17 13:45 13:45 10:15 WBC RBC Hgb Hct MCV MCH MCHC RDW Plt Count MPV Neut % (Auto) Lymph % (Auto) [place] % (Auto) Eos % (Auto) Baso % (Auto) Neut # (Auto) Lymph # (Auto) [place] # (Auto) Eos # (Auto) Baso # (Auto) Total Counted Immature Gran % Nucleated RBC % Immature Gran # Segmented Neutrophils Band Neutrophils Lymphocytes Monocytes Nucleated RBCs # Platelet Estimate Immature Plt Fraction Anisocytosis Macrocytosis Acanthocytes (Spur) Cord ABG pH 7.303 Cord ABG pCO2 52.1 Cord ABG pO2 6.9 Cord ABG HCO3 25.2 Cord ABG Total CO2 26.8 Cord ABG Base Excess -1.9 Cord VBG pH 7.395 Cord VBG pCO2 36.6 Cord VBG pO2 26.2 Cord VBG HCO3 21.9 Cord VBG Total CO2 23.0 Cord VBG Base Excess -2.4 Urine Opiates Screen Negative Ur Barbiturates Screen Negative Ur Phencyclidine Scrn Negative U Amphetamine/Methamph Negative U Benzodiazepines Scrn Negative U Cocaine Metab Screen Negative U Cannabinoids Screen Positive H Blood Type Antibody Screen Crossmatch Blood Bank Comment 03/15/17 09:35 WBC RBC Hgb Hct MCV MCH MCHC RDW Plt Count MPV Neut % (Auto) Lymph % (Auto) [place] % (Auto) Eos % (Auto) Baso % (Auto) Neut # (Auto) Lymph # (Auto) [place] # (Auto) Eos # (Auto) Baso # (Auto) Total Counted Immature Gran % Nucleated RBC % Immature Gran # Segmented Neutrophils Band Neutrophils Lymphocytes Monocytes Nucleated RBCs # Platelet Estimate Immature Plt Fraction Anisocytosis Macrocytosis Acanthocytes (Spur) Cord ABG pH Cord ABG pCO2 Cord ABG pO2 Cord ABG HCO3 Cord ABG Total CO2 Cord ABG Base Excess Cord VBG pH Cord VBG pCO2 Cord VBG pO2 Cord VBG HCO3 Cord VBG Total CO2 Cord VBG Base Excess Urine Opiates Screen Ur Barbiturates Screen Ur Phencyclidine Scrn U Amphetamine/Methamph U Benzodiazepines Scrn U Cocaine Metab Screen U Cannabinoids Screen Blood Type A POSITIVE Antibody Screen Negative Crossmatch Blood Bank Comment DS: Provider Date of admission: 03/15/17 09:35 Primary care physician: . No PCP Attending physician on admission: Essence George, Consults: 03/15/17 09:35 Consult to Anesthesiology [CONS] Routine Consulting Provider: Reason for Anesthesiology: Epidural Consult Comment: Epidural for pain managment 03/15/17 14:11 Consult to Neon Molder [CONS] Routine Consult Neon Molder: Breast Feeding 03/15/17 14:15 Consult to Case Mgmt/Social Srvs [CONS] Routine Reason for Case Mgmt/Social Srvs: Psychiatric Management Other Consult Comment: urine drug screen + for marijuana, late care, depression- poss counselling Discharging clinician: YESIKA Benaviedz
[2017-03-16 18:48] LABS: Hematocrit 26.7 VOL% (35.7-47.0); Hemoglobin 9.5 GM/DL (12.0-16.0)
[2017-03-17 03:49] LABS: Basophils % 0.3 % (0.0-0.8); Eosinophils % 0.3 % (0.00-10.9); Hematocrit 25.3 VOL% (35.7-47.0); Immature Granulocytes % 1.6 %; Immature Granulocytes Absolute 0.22 #; Lymphocytes # 2.9 10*3/uL (1.4-4.0); Mean Corpuscular HGB Conc 35.6 GM/DL (32-36); Mean Corpuscular Hemoglobin 33 PG (27-34); Mean Corpuscular Volume 92.7 FL (87-102); Mean Platelet Volume 12.2 FL (9.6-12.0); Monocytes # 1.2 10*3/uL (0.11-0.8); Neutrophils # 8.9 10*3/uL (1.4-7.4); Neutrophils % 66.8 % (38.7-73.9); Red Blood Count 2.73 MC/CUMM (3.8-5.5); Red Cell Distribution Width 15.6 % (9.3-17.3); White Blood Count 13.4 T/CUMM (4-12)
[2017-03-17 04:18] LABS: Platelet Count 84 T/CUMM (130-400)
[2017-03-17 05:34] LABS: Platelet Estimate Decreased
[2017-03-17] MEDS: FERROUS SULFATE 325 MG TABLET PO SCH ×3 (10:11→21:59)
[2017-03-17] MEDS: buPROPion XL 150 MG TABLET PO SCH (10:11)
[2017-03-17] MEDS: CHOLECALCIFEROL 1,000 UNIT TABLET PO SCH (10:11)
[2017-03-17] MEDS: LABETALOL 100 MG TABLET PO SCH (10:11)
[2017-03-17] MEDS: DOCUSATE SODIUM 100 MG CAPSULE PO SCH ×2 (10:11→21:59)
[2017-03-17] MEDS: IBUPROFEN 800 MG TABLET PO PRN (10:15)
[2017-03-17] MEDS ORDERED: MAGNESIUM SULF DRIP 40 GM/1,000 ML ML IV SCH (17:00)
--- NOTE | 2017-03-17 17:11 | OB/GYN Progress Note ---
Assessment and Plan (1) Anemia Status: Acute Assessment and plan: 1. pt blood pressures elevated will increase the labetalol to 200mg po bid and pt never received magnesium sulfate prior to delivery therefore will administer magnesium sulfate. Pt. h/h is stable however platelets are still low. will repeat another set of pre-e labs. 2. pt with hx of depression plan to start wellbutrin according to documentation what patient was previously taking Current Visit: Yes (2) Normal spontaneous vaginal delivery Status: Acute Current Visit: Yes (3) Preeclampsia Status: Acute Current Visit: Yes LINE OUT MAN - PN: Subj Interval history: Pt. seen by bedside, pt denies any complaints. Denies any headaches or blurred vision. Pt. states that her lochia is normal Exam LINE OUT MAN - Constitutional Vitals: Vital Signs Temp Pulse Pulse Resp BP BP Pulse Ox 03/17/17 12:00 97.9 F 81 20 153/77 99 03/17/17 08:00 98.1 F 76 20 146/87 99 03/17/17 06:48 18 03/17/17 06:00 18 03/17/17 05:00 18 03/17/17 04:00 97.1 F L 73 18 148/90 98 03/17/17 03:00 18 03/17/17 02:00 18 03/17/17 00:56 18 03/17/17 00:00 97.5 F L 71 18 147/87 98 03/16/17 23:00 18 03/16/17 22:00 18 03/16/17 20:00 97.6 F 72 18 147/72 98 03/16/17 18:47 97.3 F L 79 20 150/92 General appearance: no acute distress - Respiratory Respiratory exam: Present: clear to auscultation bilaterally - Cardiovascular Cardiovascular exam: Present: regular rate and rhythm - GI/Abdominal GI/Abdominal exam: Present: normal bowel sounds - Extremities Exam Extremities exam: Present: normal inspection, edema - Psychiatric Psychiatric exam: Present: normal affect, normal mood Results - Labs CBC & BMP: 03/17/17 03:34 03/15/17 05:35
[2017-03-17] MEDS: LACTATED RINGERS 1,000 ML IV SCH (17:30)
[2017-03-17] MEDS: LABETALOL 200 MG TABLET PO SCH (21:59)
[2017-03-17 22:04] LABS: Basophils # 0.1 10*3/uL (0.0-0.2); Basophils % 0.4 % (0.0-0.8); Eosinophils # 0.1 10*3/uL (0.0-0.87); Eosinophils % 0.6 % (0.00-10.9); Hematocrit 27.2 VOL% (35.7-47.0); Hemoglobin 9.4 GM/DL (12.0-16.0); Immature Granulocytes % 1.2 %; Immature Granulocytes Absolute 0.17 #; Lymphocytes # 2.7 10*3/uL (1.4-4.0); Lymphocytes % 19.1 % (21.3-54.2); Mean Corpuscular HGB Conc 34.6 GM/DL (32-36); Mean Corpuscular Hemoglobin 33 PG (27-34); Mean Corpuscular Volume 95.4 FL (87-102); Mean Platelet Volume 11.6 FL (9.6-12.0); Monocytes # 0.9 10*3/uL (0.11-0.8); Monocytes % 6.4 % (1.7-12.7); Neutrophils # 10.1 10*3/uL (1.4-7.4); Neutrophils % 72.3 % (38.7-73.9); Platelet Count 97 T/CUMM (130-400); Red Blood Count 2.85 MC/CUMM (3.8-5.5); Red Cell Distribution Width 15.8 % (9.3-17.3)
[2017-03-17 22:22] LABS: Albumin 2.2 G/DL (3.4-5.0); Bilirubin,Total 0.4 MG/DL (0.2-1.0); Calcium 8.5 MG/DL (8.5-10.1); Osmolality,Calculated 278.5 MOS/KG (273-304); Potassium 3.6 MMOL/L (3.5-5.1); Total Protein 5.2 G/DL (6.4-8.3)
[2017-03-17 22:26] LABS: INR 0.9; PT Patient Result 9.8 SECS; Partial Thromboplastin Time 23.6 SECS (0-40)
[2017-03-18 03:41] LABS: Basophils # 0.1 10*3/uL (0.0-0.2); Basophils % 0.6 % (0.0-0.8); Eosinophils # 0.1 10*3/uL (0.0-0.87); Hematocrit 27.4 VOL% (35.7-47.0); Hemoglobin 9.6 GM/DL (12.0-16.0); Immature Granulocytes % 0.9 %; Immature Granulocytes Absolute 0.13 #; Lymphocytes # 2.4 10*3/uL (1.4-4.0); Lymphocytes % 16.8 % (21.3-54.2); Mean Corpuscular Hemoglobin 33 PG (27-34); Mean Corpuscular Volume 93.8 FL (87-102); Mean Platelet Volume 11.5 FL (9.6-12.0); Monocytes % 6.8 % (1.7-12.7); Neutrophils # 10.5 10*3/uL (1.4-7.4); Neutrophils % 73.9 % (38.7-73.9); Platelet Count 94 T/CUMM (130-400); Red Blood Count 2.92 MC/CUMM (3.8-5.5); Red Cell Distribution Width 15.6 % (9.3-17.3); White Blood Count 14.2 T/CUMM (4-12)
[2017-03-18 04:00] LABS: INR 0.9; PT Patient Result 9.5 SECS; Partial Thromboplastin Time 22.7 SECS (0-40)
[2017-03-18 04:12] LABS: Platelet Estimate Decreased
[2017-03-18 04:54] LABS: Albumin 2.4 G/DL (3.4-5.0); Bilirubin,Total 0.9 MG/DL (0.2-1.0); Calcium 8.6 MG/DL (8.5-10.1); Osmolality,Calculated 276.5 MOS/KG (273-304); Potassium 3.5 MMOL/L (3.5-5.1); Total Protein 5.4 G/DL (6.4-8.3)
[2017-03-18] MEDS: LACTATED RINGERS 1,000 ML IV SCH (05:52)
[2017-03-18 07:16] LABS: INR 0.9; PT Patient Result 9.5 SECS; Partial Thromboplastin Time 23.3 SECS (0-40)
[2017-03-18 07:28] LABS: Albumin 2.4 G/DL (3.4-5.0); Bilirubin,Total 0.4 MG/DL (0.2-1.0); Calcium 8.4 MG/DL (8.5-10.1); Osmolality,Calculated 272.8 MOS/KG (273-304); Potassium 3.4 MMOL/L (3.5-5.1); Total Protein 5.6 G/DL (6.4-8.3); Uric Acid 6.3 MG/DL (2.6-6.0)
[2017-03-18 08:34] LABS: Basophils # 0.1 10*3/uL (0.0-0.2); Basophils % 0.5 % (0.0-0.8); Eosinophils # 0.2 10*3/uL (0.0-0.87); Eosinophils % 1.2 % (0.00-10.9); Hematocrit 29.9 VOL% (35.7-47.0); Hemoglobin 10.4 GM/DL (12.0-16.0); Immature Granulocytes % 0.7 %; Immature Granulocytes Absolute 0.09 #; Lymphocytes # 1.9 10*3/uL (1.4-4.0); Mean Corpuscular HGB Conc 34.8 GM/DL (32-36); Mean Corpuscular Hemoglobin 33 PG (27-34); Mean Platelet Volume 11.8 FL (9.6-12.0); Monocytes # 0.8 10*3/uL (0.11-0.8); Monocytes % 6.1 % (1.7-12.7); NRBC # 0.02 10*3/uL; Neutrophils # 10.6 10*3/uL (1.4-7.4); Neutrophils % 77.5 % (38.7-73.9); Platelet Count 102 T/CUMM (130-400); Red Blood Count 3.18 MC/CUMM (3.8-5.5); Red Cell Distribution Width 15.3 % (9.3-17.3); White Blood Count 13.7 T/CUMM (4-12)
[2017-03-18] MEDS: LABETALOL 200 MG TABLET PO SCH (09:34)
[2017-03-18] MEDS: buPROPion XL 150 MG TABLET PO SCH (09:34)
[2017-03-18] MEDS: CHOLECALCIFEROL 1,000 UNIT TABLET PO SCH (09:34)
[2017-03-18] MEDS: DOCUSATE SODIUM 100 MG CAPSULE PO SCH ×2 (09:34→20:46)
[2017-03-18] MEDS: FERROUS SULFATE 325 MG TABLET PO SCH ×3 (09:34→20:46)
[2017-03-18 11:16] LABS: Basophils # 0.1 10*3/uL (0.0-0.2); Basophils % 0.4 % (0.0-0.8); Eosinophils # 0.1 10*3/uL (0.0-0.87); Hematocrit 30.9 VOL% (35.7-47.0); Hemoglobin 10.8 GM/DL (12.0-16.0); Immature Granulocytes % 0.8 %; Immature Granulocytes Absolute 0.11 #; Lymphocytes # 1.3 10*3/uL (1.4-4.0); Lymphocytes % 9.2 % (21.3-54.2); Mean Corpuscular Hemoglobin 33 PG (27-34); Mean Corpuscular Volume 93.1 FL (87-102); Mean Platelet Volume 11.8 FL (9.6-12.0); Neutrophils # 11.1 10*3/uL (1.4-7.4); Neutrophils % 81.6 % (38.7-73.9); Platelet Count 100 T/CUMM (130-400); Red Blood Count 3.32 MC/CUMM (3.8-5.5); Red Cell Distribution Width 15.3 % (9.3-17.3); White Blood Count 13.6 T/CUMM (4-12)
[2017-03-18 11:36] LABS: INR 0.9; PT Patient Result 9.4 SECS; Partial Thromboplastin Time 23.8 SECS (0-40)
[2017-03-18 11:47] LABS: Albumin 2.4 G/DL (3.4-5.0); Bilirubin,Total 0.4 MG/DL (0.2-1.0); Calcium 8.5 MG/DL (8.5-10.1); Osmolality,Calculated 273.8 MOS/KG (273-304); Potassium 3.5 MMOL/L (3.5-5.1); Total Protein 5.8 G/DL (6.4-8.3); Uric Acid 6.8 MG/DL (2.6-6.0)
--- NOTE | 2017-03-18 12:04 | Hospitalist Consult Note ---
<Nataly Malave - Last Filed: 03/18/17 11:56> Assessment and Plan - Time spent with patient Time spent with patient: Greater than 30 minutes (1) Hypermagnesemia Status: Acute Assessment and plan: 36-year-old -Chinese female with history of chronic depression, vitamin D deficiency, and anemia admitted by Dr. George from [facility] status post vaginal delivery of a 34 week due to preeclampsia. She was moved to the ICU late last night with hypertensive emergency and worsening platelets. Dr. Rutherford will see and examine patient and further recommendations to follow. depression--Patient has been started on Wellbutrin for her depression but this may take a bit to start working. Patient is tearful in the room but refuses to take anything else for anxiety. If patient stabilizes this afternoon it would be okay to take her in a wheelchair over to the NICU to visit her baby. hypertension--Patient's blood pressures are still elevated but improved from last night. She is on labetalol 200 mg p.o. twice daily. Will add some captopril 25 mg p.o. 3 times daily scheduled and IV hydralazine as needed. hypomagnasemia/BLE pitting edema--Patient's magnesium is 7.8 and her lower extremity edema is pitting at +3. Patient is eating and drinking well so we will stop magnesium and IV fluids and recheck her labs in the morning. Continue to assess her motor function and reflexes. Patient has brisk urinary output but with lower extremity edema will go ahead and add a one-time dose of Lasix. We will also recommend a low-sodium diet. Current Visit: Yes (2) Hypertensive urgency Status: Acute Current Visit: Yes (3) Anemia Status: Acute Current Visit: Yes (4) Normal spontaneous vaginal delivery Status: Acute Current Visit: Yes (5) Advanced maternal age in multigravida Status: Acute Current Visit: Yes (6) Preeclampsia Status: Acute Current Visit: Yes (7) Vitamin D deficiency Status: Acute Current Visit: Yes (8) History of marijuana use Status: Acute Current Visit: Yes (9) Smoker Status: Acute Current Visit: Yes History of Present Illness - Data of Consult Patient: new to practice Consult date: 03/18/17 Requesting Physician: Essence George - Consult Narrative Reason for consult: medical management History of present illness: Ms. Javed is a 36 year old -Chinese female with history of smoking and marijuana use during , untreated depression, vitamin D deficiency, and anemia admitted by Dr. George [facility] with preeclampsia at 34.3 weeks gestation. Patient was induced on 03/15/2017 with normal spontaneous vaginal delivery of a 4 lbs. 2 oz. female . Patient was slated for discharge when she went into hypertensive urgency with low platelets. Dr. George was concerned about DIC. Hospital medicine was consulted for assistance. Upon exam patient is very tearful but has no complaints. Apparently this is her seventh child and the father of some of her children has recently along with her mother. This seems to have her moderately depressed. She is not short of breath, lungs are clear but she does have 3+ pitting edema of bilateral lower extremities. She is not tachycardic and her blood pressures are still elevated at 149/91. She has brisk urinary output. Her white count is mildly elevated at 13.6, platelets are 100, uric acid elevated at 6.8, magnesium at 7.8. Patient has no symptoms of paralysis and her reflexes are normal. Dr. Rutherford will see and examine the patient for hospital medicine. CC: Essence George, - Home Medications and Allergies Home Medications: Home Medications Medication Instructions Recorded Confirmed Type Cholecalciferol (Vitamin D3) 5,000 unit PO DAILY 03/14/17 03/14/17 History [Vitamin D3] Ergocalciferol (Vitamin D2) 50,000 unit PO Q7DAY 03/14/17 03/14/17 History [Vitamin D2] Vit No.124/Iron/Folic 1 tablet PO DAILY 03/14/17 03/14/17 History [ Vitamin Tablet] Ferrous Sulfate Tab [Feosol 325 mg PO TID #90 tablet 03/16/17 Rx Original Tab] Ibuprofen 800 mg PO Q8HR PRN #90 tablet 03/16/17 Rx Labetalol Tab [Trandate Tab] 100 mg PO BID #60 tablet 03/16/17 Rx buPROPion XL [Wellbutrin Xl] 150 mg PO DAILY #30 tablet 03/16/17 Rx Allergies/Adverse Reactions: Allergies Allergy/AdvReac Type Severity Reaction Status Date / Time No Known Allergies Allergy Verified 03/14/17 13:55 Medical,Surgical,& Family Hx - Medical History Psychological: History of: Depression Reproductive: No history of: Ectopic , Complication - Surgical History Reproductive Surgeries: Patient denies;: Section, Gynecologic Surgery - Family History Family History: Reports;: Family Diabetes (mother), Family Hypertension (mother) , Family Stroke (mother) - Social History Smoking Status: Current every day smoker Frequency of Alcohol Use: None Type of Drug Use: Marijuana 12 point system: reviewed and no additional remarkable complaints except as stated Exam - Constitutional Vitals: Period Temp Pulse Resp BP Sys/Esquivel Pulse Ox Last 24 Hr 97.6 F-98.8 F 68-86 10-20 132-163/74-97 93-100 Exam: Constitutional System: Mild distress. No tremulousness. Tearful Head: Normocephalic, atraumatic. Ears, Nose and Throat System: No evidence of Otitis or Mastoiditis. No epistaxis or discharge Eyes System: Pupils equal, round, and reactive. Extraocular muscles intact. Neck: Supple, without adenopathy, No jugular venous distention. No thyromegaly, neck mass, or prior surgery apparent. Respiratory System: Chest clear to auscultation. Cardiovascular System: Heart with regular rate and rhythm. No murmur. GI System: Abdomen soft, moderately tender. Normo active bowel sounds present. Musculoskeletal System: limbs with 3+ pitting pedal edema. Diminished distal pulses. Neurological System: No discernable sensory deficit. No aphasia Psychiatric System: Conversation is rational, tearful and mildly depressed Results - Labs CBC & BMP: 03/18/17 10:35 03/18/17 06:45 Lab Results: I have reviewed the past 24 hour labs - EKG EKG results: sinus rhythm EKG shows: sinus rhythm Quality Measures - VTE Contraindication to Pharmacological VTE Prophylaxis: Clinical assessment deems Pt at low risk, no prophalaxis needed Specialty Discharge - Follow Up or Referrals Follow up with: Jennifer Lowry CFNP [Advanced Practice Nurse] - 03/26/17 1:00 pm <Gonzalez Rutherford - Last Filed: 03/18/17 12:57> History of Present Illness - Consult Narrative History of present illness: Ms. Javed is a 36 year old female with multiparity who had presented with preeclampsia with induced vaginal delivery on 15 March. She sustained hypertension a fall in her platelet count to noncritical levels unassociated with coagulopathy elevated liver function tests or deterioration in her renal function. She denies for me any prior history of hypertension. As noted above she is seen in the ICU. She continues hypertensive but is otherwise hemodynamically stable platelet count is rebounding and no new abnormalities in the laboratory panel are noted. Her cardiopulmonary exam is unremarkable she has mild interstitial edema following large volume resuscitation postdelivery. Patient was placed on a delayed magnesium infusion with elevated blood level without evidence of cardiac electrical suppression. We have recommended the addition of a short acting CAITLIN inhibitor for presumed renin dependent mediated hypertension. I have discussed this case in person with Nataly Malave. CC: Essence George, Exam - Constitutional Vitals: Period Temp Pulse Resp BP Sys/Esquivel Pulse Ox Last 24 Hr 97.6 F-98.8 F 68-86 10-20 132-163/74-97 93-100 Results - Labs CBC & BMP: 03/18/17 10:35 03/18/17 10:35
[2017-03-18] MEDS ORDERED: hydrALAZINE 20 MG/1 ML VIAL IV PRN (12:10)
[2017-03-18] MEDS ORDERED: FUROSEMIDE 20 MG/2 ML VIAL IV ONE (12:20)
--- NOTE | 2017-03-18 13:38 | OB/GYN Progress Note ---
Assessment and Plan (1) Anemia Status: Acute Assessment and plan: 1. pt blood pressures elevated will increase the labetalol to 200mg po bid and pt never received magnesium sulfate prior to delivery therefore will administer magnesium sulfate. Pt. h/h is stable however platelets are still low. will repeat another set of pre-e labs. 2. pt with hx of depression plan to start wellbutrin according to documentation what patient was previously taking Current Visit: Yes (2) Normal spontaneous vaginal delivery Status: Acute Current Visit: Yes (3) Preeclampsia Status: Acute Assessment and plan: 1. restart magnesium at 25cc/hr 2. plan to continue wellbutrin however if her mood does not improve alliance should be consulted 3. repeat pre-e labs 4. plan is to transfer back to floor once labs are normal and patient s/p magnesium Current Visit: Yes CHRONIC DISEASE EPIDEMIOLOGIST - PN: Subj Interval history: Pt. seen by bedside, appears sad and tearful. Pt. denies any complaints. Pt. was transferred to the CCU for closer monitoring secondary to low fibrinogen along with thrombocytopenia with suspicion that the patient was going into DIC. At present the fibrinogen and platelets are starting to increase and pt blood pressure is stable. The magnesium sulfate was temporarily held secondary to elevated magnesium level. Pt. denies any chest pain or shortness of breath. Exam CHRONIC DISEASE EPIDEMIOLOGIST - Constitutional Vitals: Vital Signs Temp Pulse Pulse Resp BP Pulse Ox 03/18/17 06:00 70 12 149/91 98 03/18/17 05:00 68 15 149/86 93 L 03/18/17 04:00 98.8 F 72 12 138/84 100 03/18/17 03:00 68 12 152/92 97 03/18/17 01:57 69 12 143/92 99 03/18/17 01:27 75 10 L 152/95 99 03/18/17 01:12 76 10 L 154/94 100 03/18/17 00:57 86 19 97 03/18/17 00:42 78 13 155/96 99 03/18/17 00:27 98.7 F 71 15 163/97 100 03/17/17 23:00 97.8 F 74 20 146/94 99 03/17/17 22:00 73 18 140/79 99 03/17/17 21:00 75 18 132/75 98 03/17/17 20:00 97.6 F 73 20 144/84 99 03/17/17 18:30 97.7 F 80 20 148/74 98 03/17/17 17:30 98.2 F 72 20 149/81 99 General appearance: no acute distress - Respiratory Respiratory exam: Present: clear to auscultation bilaterally - Cardiovascular Cardiovascular exam: Present: regular rate and rhythm - Extremities Exam Extremities exam: Present: edema - Psychiatric Psychiatric exam: Present: depressed Results - Labs CBC & BMP: 03/18/17 10:35 03/18/17 10:35
[2017-03-18 14:03] LABS: Basophils % 0.3 % (0.0-0.8); Eosinophils # 0.1 10*3/uL (0.0-0.87); Eosinophils % 1.1 % (0.00-10.9); Hematocrit 28.3 VOL% (35.7-47.0); Hemoglobin 10.1 GM/DL (12.0-16.0); Immature Granulocytes % 0.7 %; Immature Granulocytes Absolute 0.08 #; Lymphocytes # 1.3 10*3/uL (1.4-4.0); Lymphocytes % 10.7 % (21.3-54.2); Mean Corpuscular HGB Conc 35.7 GM/DL (32-36); Mean Corpuscular Hemoglobin 33 PG (27-34); Mean Corpuscular Volume 93.4 FL (87-102); Mean Platelet Volume 11.8 FL (9.6-12.0); Monocytes # 0.9 10*3/uL (0.11-0.8); Monocytes % 7.1 % (1.7-12.7); Neutrophils # 9.8 10*3/uL (1.4-7.4); Neutrophils % 80.1 % (38.7-73.9); Red Blood Count 3.03 MC/CUMM (3.8-5.5); Red Cell Distribution Width 15.2 % (9.3-17.3); White Blood Count 12.2 T/CUMM (4-12)
[2017-03-18 14:04] LABS: Platelet Count 99 T/CUMM (130-400)
[2017-03-18 14:21] LABS: Platelet Estimate Decreased
[2017-03-18 14:24] LABS: INR 0.9; PT Patient Result 9.4 SECS; Partial Thromboplastin Time 23.8 SECS (0-40)
[2017-03-18 14:41] LABS: Albumin 2.3 G/DL (3.4-5.0); Bilirubin,Total 0.4 MG/DL (0.2-1.0); Calcium 8.2 MG/DL (8.5-10.1); Total Protein 5.3 G/DL (6.4-8.3)
[2017-03-18 14:42] LABS: Osmolality,Calculated 274.7 MOS/KG (273-304); Potassium 3.7 MMOL/L (3.5-5.1); Uric Acid 6.4 MG/DL (2.6-6.0)
[2017-03-18] MEDS: CAPTOPRIL 25 MG TABLET PO SCH ×2 (15:33→20:46)
[2017-03-18 17:36] LABS: Basophils % 0.3 % (0.0-0.8); Eosinophils # 0.2 10*3/uL (0.0-0.87); Eosinophils % 1.1 % (0.00-10.9); Hematocrit 32.8 VOL% (35.7-47.0); Hemoglobin 11.6 GM/DL (12.0-16.0); Immature Granulocytes % 0.6 %; Immature Granulocytes Absolute 0.08 #; Lymphocytes # 1.9 10*3/uL (1.4-4.0); Lymphocytes % 14.1 % (21.3-54.2); Mean Corpuscular HGB Conc 35.4 GM/DL (32-36); Mean Corpuscular Hemoglobin 33 PG (27-34); Mean Corpuscular Volume 93.7 FL (87-102); Monocytes # 0.7 10*3/uL (0.11-0.8); Monocytes % 5.5 % (1.7-12.7); Neutrophils # 10.5 10*3/uL (1.4-7.4); Neutrophils % 78.4 % (38.7-73.9); Platelet Count 108 T/CUMM (130-400); Red Cell Distribution Width 15.3 % (9.3-17.3); White Blood Count 13.4 T/CUMM (4-12)
[2017-03-18 17:55] LABS: INR 0.9; PT Patient Result 9.3 SECS; Partial Thromboplastin Time 25.8 SECS (0-40)
[2017-03-18 18:42] LABS: Albumin 2.7 G/DL (3.4-5.0); Bilirubin,Total 0.4 MG/DL (0.2-1.0); Calcium 8.6 MG/DL (8.5-10.1); Potassium 3.5 MMOL/L (3.5-5.1); Total Protein 6.3 G/DL (6.4-8.3); Uric Acid 6.6 MG/DL (2.6-6.0)
[2017-03-18 22:00] LABS: Basophils % 0.3 % (0.0-0.8); Eosinophils # 0.2 10*3/uL (0.0-0.87); Eosinophils % 1.4 % (0.00-10.9); Hematocrit 29.5 VOL% (35.7-47.0); Hemoglobin 10.3 GM/DL (12.0-16.0); Immature Granulocytes % 0.6 %; Immature Granulocytes Absolute 0.07 #; Lymphocytes # 2.2 10*3/uL (1.4-4.0); Lymphocytes % 19.7 % (21.3-54.2); Mean Corpuscular HGB Conc 34.9 GM/DL (32-36); Mean Corpuscular Hemoglobin 33 PG (27-34); Mean Corpuscular Volume 93.4 FL (87-102); Monocytes # 0.8 10*3/uL (0.11-0.8); Monocytes % 7.1 % (1.7-12.7); Neutrophils % 70.9 % (38.7-73.9); Platelet Count 112 T/CUMM (130-400); Red Blood Count 3.16 MC/CUMM (3.8-5.5); Red Cell Distribution Width 14.9 % (9.3-17.3); White Blood Count 11.3 T/CUMM (4-12)
[2017-03-18 22:35] LABS: INR 0.9; PT Patient Result 9.4 SECS
[2017-03-18 22:42] LABS: Alanine Aminotransferase 37 U/L (13-56); Albumin 2.4 G/DL (3.4-5.0); Alkaline Phosphatase 84 U/L (45-117); Aspartate Amino Transferase 29 U/L (0-37); Bilirubin,Total < 0.39 MG/DL (0.2-1.0); Blood Urea Nitrogen 25 MG/DL (7-18); Calcium 8.2 MG/DL (8.5-10.1); Glucose 84 MG/DL (74-106); Osmolality,Calculated 277.7 MOS/KG (273-304); Potassium 3.6 MMOL/L (3.5-5.1); Sodium 138 MMOL/L (136-145); Total Protein 5.6 G/DL (6.4-8.3); Uric Acid 7.1 MG/DL (2.6-6.0)
[2017-03-19 01:56] LABS: Basophils % 0.4 % (0.0-0.8); Eosinophils # 0.2 10*3/uL (0.0-0.87); Hematocrit 28.7 VOL% (35.7-47.0); Hemoglobin 9.9 GM/DL (12.0-16.0); Immature Granulocytes % 0.7 %; Immature Granulocytes Absolute 0.07 #; Lymphocytes # 2.5 10*3/uL (1.4-4.0); Lymphocytes % 23.3 % (21.3-54.2); Mean Corpuscular HGB Conc 34.5 GM/DL (32-36); Mean Corpuscular Hemoglobin 32 PG (27-34); Mean Corpuscular Volume 93.8 FL (87-102); Mean Platelet Volume 11.9 FL (9.6-12.0); Monocytes # 0.7 10*3/uL (0.11-0.8); Monocytes % 6.5 % (1.7-12.7); Neutrophils # 7.1 10*3/uL (1.4-7.4); Neutrophils % 67.1 % (38.7-73.9); Platelet Count 109 T/CUMM (130-400); Red Blood Count 3.06 MC/CUMM (3.8-5.5); White Blood Count 10.5 T/CUMM (4-12)
[2017-03-19 02:18] LABS: INR 0.9; PT Patient Result 9.6 SECS; Partial Thromboplastin Time 26.7 SECS (0-40)
[2017-03-19 02:33] LABS: Albumin 2.3 G/DL (3.4-5.0); Bilirubin,Total 0.4 MG/DL (0.2-1.0); Osmolality,Calculated 279.5 MOS/KG (273-304); Potassium 3.6 MMOL/L (3.5-5.1); Total Protein 5.4 G/DL (6.4-8.3); Uric Acid 7.2 MG/DL (2.6-6.0)
[2017-03-19 05:34] LABS: Basophils # 0.1 10*3/uL (0.0-0.2); Basophils % 0.5 % (0.0-0.8); Eosinophils # 0.2 10*3/uL (0.0-0.87); Hematocrit 28.3 VOL% (35.7-47.0); Hemoglobin 9.8 GM/DL (12.0-16.0); Immature Granulocytes % 0.6 %; Immature Granulocytes Absolute 0.06 #; Lymphocytes # 2.5 10*3/uL (1.4-4.0); Lymphocytes % 24.9 % (21.3-54.2); Mean Corpuscular HGB Conc 34.6 GM/DL (32-36); Mean Corpuscular Hemoglobin 33 PG (27-34); Mean Platelet Volume 11.2 FL (9.6-12.0); Monocytes # 0.7 10*3/uL (0.11-0.8); Monocytes % 6.9 % (1.7-12.7); Neutrophils # 6.6 10*3/uL (1.4-7.4); Neutrophils % 65.1 % (38.7-73.9); Platelet Count 114 T/CUMM (130-400); Red Blood Count 3.01 MC/CUMM (3.8-5.5); Red Cell Distribution Width 14.9 % (9.3-17.3); White Blood Count 10.1 T/CUMM (4-12)
[2017-03-19 05:51] LABS: INR 0.9; PT Patient Result 9.7 SECS; Partial Thromboplastin Time 26.8 SECS (0-40)
[2017-03-19 06:20] LABS: Albumin 2.2 G/DL (3.4-5.0); Bilirubin,Total 0.7 MG/DL (0.2-1.0); Calcium 7.9 MG/DL (8.5-10.1); Osmolality,Calculated 277.7 MOS/KG (273-304); Potassium 3.6 MMOL/L (3.5-5.1); Total Protein 5.2 G/DL (6.4-8.3); Uric Acid 7.3 MG/DL (2.6-6.0)
[2017-03-19] MEDS: DOCUSATE SODIUM 100 MG CAPSULE PO SCH ×2 (10:01→21:44)
[2017-03-19] MEDS: buPROPion XL 150 MG TABLET PO SCH (10:02)
[2017-03-19] MEDS: CAPTOPRIL 25 MG TABLET PO SCH ×3 (10:02→21:44)
[2017-03-19] MEDS: FERROUS SULFATE 325 MG TABLET PO SCH ×3 (10:03→21:44)
[2017-03-19] MEDS: CHOLECALCIFEROL 1,000 UNIT TABLET PO SCH (10:03)
[2017-03-19] MEDS: amLODIPine 10 MG TABLET PO SCH (10:07)
--- NOTE | 2017-03-19 10:15 | OB/GYN Progress Note ---
Assessment and Plan (1) Preeclampsia Status: Acute Assessment and plan: Blood pressure continues to improve with antihypertensives and is within normal range today. Current Visit: Yes (2) Thrombocytopenia affecting Problem details: Resolving spontaneously following delivery. Status: Acute Current Visit: Yes EMS EDUCATOR - PN: Subj Interval history: Patient is feeling much better today. Denies headache double or blurred vision. Lab is improving without further thrombocytopenia. Exam EMS EDUCATOR - Constitutional Vitals: Vital Signs Temp Pulse Resp BP Pulse Ox 03/19/17 06:00 67 12 150/72 98 03/19/17 05:00 68 10 L 133/73 99 03/19/17 04:00 98.8 F 63 18 133/73 99 03/19/17 03:00 64 18 153/94 98 03/19/17 02:00 65 18 159/74 98 03/19/17 01:00 65 13 172/89 98 03/19/17 00:00 73 12 111/66 96 03/18/17 23:00 78 12 145/85 99 03/18/17 22:00 65 13 145/85 98 03/18/17 21:00 71 20 168/90 99 03/18/17 20:00 73 13 168/90 97 03/18/17 19:00 98.7 F 84 20 98 03/18/17 18:00 69 14 150/92 99 03/18/17 17:00 71 15 138/86 99 03/18/17 16:00 97.7 F 71 13 174/98 98 03/18/17 15:00 69 16 174/98 100 03/18/17 14:00 70 12 160/93 97 03/18/17 13:00 70 20 158/98 99 03/18/17 12:00 97.9 F 67 12 150/88 96 03/18/17 11:00 84 13 145/79 99 General appearance: no acute distress - Head Head exam: Present: normal inspection - Eye Eye exam: Absent: periorbital swelling Pupils: Present: SHELBI - ENT ENT exam: Present: normal exam - Neck Neck exam: Present: normal inspection - Respiratory Respiratory exam: Present: clear to auscultation bilaterally. Absent: accessory muscle use - Cardiovascular Cardiovascular exam: Present: regular rate and rhythm - GI/Abdominal GI/Abdominal exam: Present: normal bowel sounds. Absent: distended, mass, tenderness, rebound - Extremities Exam Extremities exam: Present: other (Deep tendon reflexes are +1-+2 bilaterally). Absent: calf tenderness, edema - Back Exam Back exam: Present: normal inspection - Neurological Exam Neurological exam: Present: alert, oriented X3, reflexes normal Results - Labs CBC & BMP: 03/19/17 05:26 03/19/17 05:26
[2017-03-19 10:21] LABS: Basophils % 0.4 % (0.0-0.8); Eosinophils # 0.2 10*3/uL (0.0-0.87); Eosinophils % 1.5 % (0.00-10.9); Hematocrit 27.5 VOL% (35.7-47.0); Hemoglobin 9.6 GM/DL (12.0-16.0); Immature Granulocytes % 0.7 %; Immature Granulocytes Absolute 0.07 #; Lymphocytes % 20.1 % (21.3-54.2); Mean Corpuscular HGB Conc 34.9 GM/DL (32-36); Mean Corpuscular Hemoglobin 33 PG (27-34); Mean Corpuscular Volume 93.2 FL (87-102); Mean Platelet Volume 12.2 FL (9.6-12.0); Monocytes # 0.7 10*3/uL (0.11-0.8); Monocytes % 6.8 % (1.7-12.7); Neutrophils # 6.9 10*3/uL (1.4-7.4); Neutrophils % 70.5 % (38.7-73.9); Platelet Count 116 T/CUMM (130-400); Red Blood Count 2.95 MC/CUMM (3.8-5.5); Red Cell Distribution Width 14.9 % (9.3-17.3); White Blood Count 9.7 T/CUMM (4-12)
[2017-03-19 10:54] LABS: Alanine Aminotransferase 31 U/L (13-56); Albumin 2.2 G/DL (3.4-5.0); Alkaline Phosphatase 76 U/L (45-117); Aspartate Amino Transferase 24 U/L (0-37); Bilirubin,Total < 0.39 MG/DL (0.2-1.0); Blood Urea Nitrogen 22 MG/DL (7-18); Glucose 76 MG/DL (74-106); Osmolality,Calculated 280.4 MOS/KG (273-304); Potassium 3.5 MMOL/L (3.5-5.1); Sodium 140 MMOL/L (136-145); Total Protein 5.1 G/DL (6.4-8.3)
--- NOTE | 2017-03-19 12:18 | Pathology Report from [facility] ---
[facility] [employer] ACCESSION # : [id number] PATIENT NAME : Fabiana Javed ORDERING DR : THOM CASTILLO DO CLINICAL HX: IUP @ 34.4 weeks - Pre eclampsia - IUGR - Smoking - Advanced maternal age - History of marijuana use POST-OP DX: Same SPECIMEN INFO: Placenta GROSS DESCRIPTION: Received fresh labeled FABIANA JAVED & PLACENTA consists of a 300 gm placenta with accessory lobe. The placenta measures 13.8 x 19.2 x 1.6 cm. The accessory lobe measures 5.1 x 7.4 x 1.5 cm. The membranes are haley and translucent. The umbilical cord measures 10.1 cm, contains three vessels and is pericentrally inserted. The surface is blue white. The maternal surface is beefy red with a few areas of adherent blood present and scattered calcifications noted. No gross abnormalities upon sectioning. Sections submitted A- membranes and cord, B- and maternal surfaces. DIAGNOSIS FOR FABIANA JAVED: PLACENTA, 34.4 WEEKS GESTATIONAL AGE, VAGINAL DELIVERY: Slightly immature placenta, 300 gms trimmed weight. Unremarkable membranes. Trivascular umbilical cord, 10.1 cm in length. COLLECTED DATE: 03/16/2017 [facility] REPORT DATE: 03/19/2017 ELECTRONICALLY SIGNED BY: Lizette Up M.D. 03/19/2017 - 10:20:27 QUYNH
[2017-03-19 13:28] LABS: Basophils % 0.4 % (0.0-0.8); Eosinophils # 0.2 10*3/uL (0.0-0.87); Eosinophils % 1.7 % (0.00-10.9); Hematocrit 28.7 VOL% (35.7-47.0); Hemoglobin 9.8 GM/DL (12.0-16.0); Immature Granulocytes % 0.8 %; Immature Granulocytes Absolute 0.08 #; Lymphocytes # 1.9 10*3/uL (1.4-4.0); Lymphocytes % 18.6 % (21.3-54.2); Mean Corpuscular HGB Conc 34.1 GM/DL (32-36); Mean Corpuscular Hemoglobin 32 PG (27-34); Mean Corpuscular Volume 94.7 FL (87-102); Mean Platelet Volume 11.6 FL (9.6-12.0); Monocytes # 0.6 10*3/uL (0.11-0.8); Monocytes % 5.9 % (1.7-12.7); Neutrophils # 7.4 10*3/uL (1.4-7.4); Neutrophils % 72.6 % (38.7-73.9); Platelet Count 121 T/CUMM (130-400); Red Blood Count 3.03 MC/CUMM (3.8-5.5); Red Cell Distribution Width 14.9 % (9.3-17.3); White Blood Count 10.2 T/CUMM (4-12)
[2017-03-19 14:03] LABS: Albumin 2.3 G/DL (3.4-5.0); Bilirubin,Total 0.6 MG/DL (0.2-1.0); Calcium 8.1 MG/DL (8.5-10.1); Osmolality,Calculated 278.7 MOS/KG (273-304); Potassium 3.2 MMOL/L (3.5-5.1); Total Protein 5.3 G/DL (6.4-8.3)
[2017-03-19] MEDS ORDERED: POTASSIUM CHLORIDE 20 MEQ TABLET PO ONE (16:21)
--- NOTE | 2017-03-19 16:22 | Hospitalist Progress Note ---
Assessment and Plan (1) Normal spontaneous vaginal delivery Status: Acute Assessment and plan: ANIMAL CARE PROVIDER manage Current Visit: Yes (2) Advanced maternal age in multigravida Status: Acute Assessment and plan: ANIMAL CARE PROVIDER manage Current Visit: Yes (3) Anemia affecting eighth Status: Acute Assessment and plan: Continue iron supplementation Current Visit: Yes (4) Thrombocytopenia affecting Problem details: Resolving spontaneously following delivery. Status: Acute Assessment and plan: No evidence of DIC Current Visit: Yes (5) Depression Status: Acute Assessment and plan: Agree with Wellbutrin Current Visit: Yes (6) Hypertensive urgency Status: Acute Assessment and plan: Continue captopril will add Norvasc Current Visit: Yes Hospitalist: Subjective Interval history: Patient's blood pressure is still not well controlled. She does not intend to breast-feed. Patient should not be having any more children at the age of 36. She seems very depressed. Exam - Constitutional Vitals: Period Temp Pulse Resp BP Sys/Esquivel Pulse Ox Last 24 Hr 97.4 F-99.6 F 59-84 10-20 111-172/66-94 96-100 Exam: Heart Rate-[RRR] Lungs-[CTAB] GI-[+bs soft, NT] Ext-[no edema] Neuro [Motor 5/5], [alert and oriented times 3] psych [depressed mood and affect] General [no acute distress] Results - Labs CBC & BMP: 03/19/17 13:07 03/19/17 13:07 Lab Results: I have reviewed the past 24 hour labs Labs: Urine culture negative no growth Quality Measures - VTE Contraindication to Pharmacological VTE Prophylaxis: Clinical assessment deems Pt at low risk, no prophalaxis needed Specialty Discharge - Follow Up or Referrals Follow up with: Jennifer Lowry CFNP [Advanced Practice Nurse] - 03/26/17 1:00 pm
[2017-03-20] MEDS: oxyCODONE/ACETAMINOPHEN 5-325 MG TABLET PO PRN (03:50)
[2017-03-20 05:42] LABS: Basophils % 0.4 % (0.0-0.8); Eosinophils # 0.1 10*3/uL (0.0-0.87); Eosinophils % 1.2 % (0.00-10.9); Hematocrit 31.9 VOL% (35.7-47.0); Hemoglobin 10.5 GM/DL (12.0-16.0); Immature Granulocytes % 0.6 %; Immature Granulocytes Absolute 0.06 #; Lymphocytes # 2.5 10*3/uL (1.4-4.0); Lymphocytes % 23.5 % (21.3-54.2); Mean Corpuscular HGB Conc 32.9 GM/DL (32-36); Mean Corpuscular Hemoglobin 32 PG (27-34); Mean Corpuscular Volume 97.9 FL (87-102); Mean Platelet Volume 11.8 FL (9.6-12.0); Monocytes # 0.8 10*3/uL (0.11-0.8); Monocytes % 7.7 % (1.7-12.7); Neutrophils # 7.2 10*3/uL (1.4-7.4); Neutrophils % 66.6 % (38.7-73.9); Platelet Count 139 T/CUMM (130-400); Red Blood Count 3.26 MC/CUMM (3.8-5.5); Red Cell Distribution Width 14.9 % (9.3-17.3); White Blood Count 10.8 T/CUMM (4-12)
[2017-03-20 07:19] LABS: Albumin 2.3 G/DL (3.4-5.0); Bilirubin,Total 0.4 MG/DL (0.2-1.0); Calcium 8.4 MG/DL (8.5-10.1); Osmolality,Calculated 276.5 MOS/KG (273-304); Potassium 4.1 MMOL/L (3.5-5.1); Total Protein 5.2 G/DL (6.4-8.3)
[2017-03-20] MEDS: DOCUSATE SODIUM 100 MG CAPSULE PO SCH (08:39)
[2017-03-20] MEDS: CHOLECALCIFEROL 1,000 UNIT TABLET PO SCH (08:39)
[2017-03-20] MEDS: CAPTOPRIL 25 MG TABLET PO SCH ×2 (08:39→17:53)
[2017-03-20] MEDS: buPROPion XL 150 MG TABLET PO SCH (08:39)
[2017-03-20] MEDS: FERROUS SULFATE 325 MG TABLET PO SCH ×2 (08:39→17:53)
[2017-03-20] MEDS: amLODIPine 10 MG TABLET PO SCH (08:39)
--- NOTE | 2017-03-20 11:36 | Hospitalist Progress Note ---
Assessment and Plan (1) Normal spontaneous vaginal delivery Status: Acute Assessment and plan: PROCEDURES ANALYST manage Current Visit: Yes (2) Advanced maternal age in multigravida Status: Acute Assessment and plan: PROCEDURES ANALYST manage Current Visit: Yes (3) Anemia affecting eighth Status: Acute Assessment and plan: Continue iron supplementation Current Visit: Yes (4) Thrombocytopenia affecting Problem details: Resolving spontaneously following delivery. Status: Acute Assessment and plan: No evidence of DIC, platelets recovering without intervention Current Visit: Yes (5) Depression Status: Acute Assessment and plan: Continue Wellbutrin Current Visit: Yes (6) Hypertensive urgency Status: Acute Assessment and plan: Continue captopril and Norvasc Current Visit: Yes Hospitalist: Subjective Interval history: Patient feels about the same today no particular complaints. Still seems very depressed. Blood pressure is fairly well controlled will sign off. Stable for discharge from my standpoint Exam - Constitutional Vitals: Period Temp Pulse Resp BP Sys/Esquivel Pulse Ox Last 24 Hr 97.2 F-98.5 F 59-81 18-20 129-146/74-89 98-100 Exam: Heart Rate-[RRR] Lungs-[CTAB] GI-[+bs soft, NT] Ext-[no edema] Neuro [Motor 5/5], [alert and oriented times 3] psych [depressed mood and affect] General [no acute distress] Results - Labs CBC & BMP: 03/20/17 05:27 03/20/17 06:21 Lab Results: I have reviewed the past 24 hour labs Quality Measures - VTE Contraindication to Pharmacological VTE Prophylaxis: Clinical assessment deems Pt at low risk, no prophalaxis needed Specialty Discharge - Follow Up or Referrals Follow up with: Jennifer Lowry CFNP [Advanced Practice Nurse] - 03/26/17 1:00 pm
[2017-03-20 16:27] VITALS: BP 149/80
--- NOTE | 2017-03-20 16:54 | Discharge Summary ---
Hospital Course - Hospital Course Hospital Course: Patient is a 36-year-old 8 now para [id number] that presented at 34.3 weeks for induction of labor secondary to preeclampsia. Labor progressed with blood pressures being elevated for patient to deliver a 4 lbs. 2 oz. female with Apgars 9 and 9. Mother is bottlefeeding. Her H&H has dropped from 8.1 and 23.3 to 6.9 and 19.6. Patient did receive 2 units of packed red blood cells as well as swelling milligrams of Lasix. She had 3+ pitting edema to both lower extremities. Lungs were clear she has been stable. 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 She will be discharged home with Wellbutrin, ibuprofen, and ferrous sulfate. She was sent to ICU for Dr. George with magnesium sulfate therapy and possible DIC Diagnosis - Discharge Diagnosis (1) Advanced maternal age in multigravida Status: Acute (2) Anemia affecting eighth Status: Acute (3) Preeclampsia Status: Acute (4) Vitamin D deficiency Status: Acute (5) History of marijuana use Status: Acute (6) Smoker Status: Acute (7) Late onset care Status: Acute (8) Group beta strep unknown Status: Acute (9) Proteinuria affecting Status: Acute (10) Proteinuria Status: Acute (11) Thrombocytopenia affecting Status: Acute (12) Depression Status: Acute (13) Normal spontaneous vaginal delivery Status: Acute (14) Anemia Status: Acute Specialty Discharge - Follow Up or Referrals Follow up with: Jennifer Lowry CFNP [Advanced Practice Nurse] - 1 Week Discharge Plan - Discharge Data Disposition: Disch To Home/Self Care Condition at Discharge: Stable Discharge Diet: advance to your usual diet Activity: resume usual activities as tolerated Hygiene: no restrictions Driving: not for (1 week) - Discharge Medications New Ferrous Sulfate Tab [Feosol Original Tab] 325 mg PO TID #90 tablet buPROPion XL [Wellbutrin Xl] 150 mg PO DAILY #30 tablet Labetalol Tab [Trandate Tab] 100 mg PO BID #60 tablet Ibuprofen 800 mg PO Q8HR PRN #90 tablet PRN Reason: pain No Action Cholecalciferol (Vitamin D3) [Vitamin D3] 5,000 unit PO DAILY Vit No.124/Iron/Folic [ Vitamin Tablet] 1 tablet PO DAILY Ergocalciferol (Vitamin D2) [Vitamin D2] 50,000 unit PO Q7DAY - Follow Up or Referral Follow Up: Jennifer Lowry CFNP [Advanced Practice Nurse] - 03/26/17 1:00 pm - Forms/Instructions Instructions: Depression (GEN), Perineal Care (DC), Vaginal Delivery (DC), Bleeding (DC) Exam - Constitutional Vitals: Period Temp Pulse Resp BP Sys/Esquivel Pulse Ox Last 24 Hr 97.2 F-98.5 F 67-81 18-20 121-149/73-89 98-100 Discharge Results Procedures and tests throughout hospitalization: Laboratory Tests 03/14/17 03/14/17 03/14/17 14:47 15:55 15:55 WBC 11.5 RBC 2.67 L Hgb 9.1 L Hct 26.0 L MCV 97.4 MCH 34 MCHC 35.0 RDW 13.7 Plt Count 110 L MPV 10.7 Neut % (Auto) 93.0 H Lymph % (Auto) 5.2 L [place] % (Auto) 1.0 L Eos % (Auto) 0.0 Baso % (Auto) 0.2 Neut # (Auto) 10.7 H Lymph # (Auto) 0.6 L [place] # (Auto) 0.1 L Eos # (Auto) 0.0 Baso # (Auto) 0.0 Total Counted 100 Immature Gran % 0.6 Nucleated RBC % 0.0 Immature Gran # 0.07 Segmented Neutrophils 92 H Band Neutrophils Lymphocytes 6 L Monocytes 2 Nucleated RBCs # 0.00 Platelet Estimate Decreased Giant Platelets Immature Plt Fraction 0.0 Hypochromasia Poikilocytosis Slight Anisocytosis Macrocytosis Tear Drop Cells Slight Acanthocytes (Spur) Morphology Comment INR 0.9 PT Patient/Control Mix 9.6 Fibrinogen 357 Circ Anticoag PTT 26.5 Cord ABG pH Cord ABG pCO2 Cord ABG pO2 Cord ABG HCO3 Cord ABG Total CO2 Cord ABG Base Excess Cord VBG pH Cord VBG pCO2 Cord VBG pO2 Cord VBG HCO3 Cord VBG Total CO2 Cord VBG Base Excess Sodium Potassium Chloride Carbon Dioxide Anion Gap BUN Creatinine GFR Calculation BUN/Creatinine Ratio Glucose Calculated Osmolality Uric Acid Calcium Magnesium Total Bilirubin AST ALT Alkaline Phosphatase Total Protein Albumin Globulin Albumin/Globulin Ratio Urine Color Yellow Urine Appearance Cloudy Urine pH 5.0 Ur Specific [place] 1.012 Urine Protein >=500 Urine Glucose (UA) 50 Urine Ketones 20 Urine Blood Large Urine Nitrate Negative Urine Bilirubin Negative Urine Urobilinogen < 2.0 H Urine Leukocytes Trace Urine RBC 85 Urine WBC 44 Ur Squamous Epith Cells Few Urine Bacteria Occasional Urine Mucus Occasional Urine Yeast (Budding) Occasional Ur Culture Indicated? Results to follow Urine Opiates Screen Ur Barbiturates Screen Ur Phencyclidine Scrn U Amphetamine/Methamph U Benzodiazepines Scrn U Cocaine Metab Screen U Cannabinoids Screen Blood Type Antibody Screen Crossmatch Blood Bank Comment 03/14/17 03/15/17 03/15/17 15:55 05:35 05:35 WBC 14.4 H RBC 2.41 L Hgb 8.1 L Hct 23.3 L MCV 96.7 MCH 34 MCHC 34.8 RDW 13.8 Plt Count 100 L MPV 12.0 Neut % (Auto) 85.2 H Lymph % (Auto) 8.5 L [place] % (Auto) 5.4 Eos % (Auto) 0.0 Baso % (Auto) 0.1 Neut # (Auto) 12.2 H Lymph # (Auto) 1.2 L [place] # (Auto) 0.8 Eos # (Auto) 0.0 Baso # (Auto) 0.0 Total Counted Immature Gran % 0.8 Nucleated RBC % 0.0 Immature Gran # 0.12 Segmented Neutrophils Band Neutrophils Lymphocytes Monocytes Nucleated RBCs # 0.00 Platelet Estimate Decreased Giant Platelets Few Immature Plt Fraction 9.8 H Hypochromasia 1+ Poikilocytosis Anisocytosis Macrocytosis Tear Drop Cells Acanthocytes (Spur) Morphology Comment INR 1.0 PT Patient/Control Mix 10.0 Fibrinogen 306 Circ Anticoag PTT 25.3 Cord ABG pH Cord ABG pCO2 Cord ABG pO2 Cord ABG HCO3 Cord ABG Total CO2 Cord ABG Base Excess Cord VBG pH Cord VBG pCO2 Cord VBG pO2 Cord VBG HCO3 Cord VBG Total CO2 Cord VBG Base Excess Sodium 138 Potassium 3.4 L Chloride 105 Carbon Dioxide 25 Anion Gap 11.4 BUN 8 Creatinine 1.00 GFR Calculation 90 BUN/Creatinine Ratio 8.00 Glucose 96 Calculated Osmolality 272.7 L Uric Acid 5.4 Calcium 8.5 Magnesium Total Bilirubin 0.50 AST 28 ALT 30 Alkaline Phosphatase 100 Total Protein 6.4 Albumin 2.7 L Globulin 3.7 H Albumin/Globulin Ratio 0.7 L Urine Color Urine Appearance Urine pH Ur Specific [place] Urine Protein Urine Glucose (UA) Urine Ketones Urine Blood Urine Nitrate Urine Bilirubin Urine Urobilinogen Urine Leukocytes Urine RBC Urine WBC Ur Squamous Epith Cells Urine Bacteria Urine Mucus Urine Yeast (Budding) Ur Culture Indicated? Urine Opiates Screen Ur Barbiturates Screen Ur Phencyclidine Scrn U Amphetamine/Methamph U Benzodiazepines Scrn U Cocaine Metab Screen U Cannabinoids Screen Blood Type Antibody Screen Crossmatch Blood Bank Comment 03/15/17 03/15/17 03/15/17 05:35 09:35 10:15 WBC RBC Hgb Hct MCV MCH MCHC RDW Plt Count MPV Neut % (Auto) Lymph % (Auto) [place] % (Auto) Eos % (Auto) Baso % (Auto) Neut # (Auto) Lymph # (Auto) [place] # (Auto) Eos # (Auto) Baso # (Auto) Total Counted Immature Gran % Nucleated RBC % Immature Gran # Segmented Neutrophils Band Neutrophils Lymphocytes Monocytes Nucleated RBCs # Platelet Estimate Giant Platelets Immature Plt Fraction Hypochromasia Poikilocytosis Anisocytosis Macrocytosis Tear Drop Cells Acanthocytes (Spur) Morphology Comment INR PT Patient/Control Mix Fibrinogen Circ Anticoag PTT Cord ABG pH Cord ABG pCO2 Cord ABG pO2 Cord ABG HCO3 Cord ABG Total CO2 Cord ABG Base Excess Cord VBG pH Cord VBG pCO2 Cord VBG pO2 Cord VBG HCO3 Cord VBG Total CO2 Cord VBG Base Excess Sodium 139 Potassium 3.2 L Chloride 100 Carbon Dioxide 21 Anion Gap 21.2 H BUN 11 Creatinine 1.00 GFR Calculation 90 BUN/Creatinine Ratio 11.00 Glucose 109 H Calculated Osmolality 276.5 Uric Acid 5.5 Calcium 7.8 L Magnesium Total Bilirubin 0.40 AST 19 ALT 21 Alkaline Phosphatase 80 Total Protein 5.3 L Albumin 2.2 L Globulin 3.1 Albumin/Globulin Ratio 0.7 L Urine Color Urine Appearance Urine pH Ur Specific [place] Urine Protein Urine Glucose (UA) Urine Ketones Urine Blood Urine Nitrate Urine Bilirubin Urine Urobilinogen Urine Leukocytes Urine RBC Urine WBC Ur Squamous Epith Cells Urine Bacteria Urine Mucus Urine Yeast (Budding) Ur Culture Indicated? Urine Opiates Screen Negative Ur Barbiturates Screen Negative Ur Phencyclidine Scrn Negative U Amphetamine/Methamph Negative U Benzodiazepines Scrn Negative U Cocaine Metab Screen Negative U Cannabinoids Screen Positive H Blood Type A POSITIVE Antibody Screen Negative Crossmatch Blood Bank Comment 03/15/17 03/15/1717 13:45 13:45 04:34 WBC 19.1 H D RBC 2.01 L Hgb 6.9 L Hct 19.6 L MCV 97.5 MCH 34 MCHC 35.2 RDW 14.1 Plt Count 81 L MPV 12.6 H Neut % (Auto) 85.4 H Lymph % (Auto) 7.8 L [place] % (Auto) 5.7 Eos % (Auto) 0.1 Baso % (Auto) 0.1 Neut # (Auto) 16.3 H Lymph # (Auto) 1.5 [place] # (Auto) 1.1 H Eos # (Auto) 0.0 Baso # (Auto) 0.0 Total Counted 100 Immature Gran % 0.9 Nucleated RBC % 0.0 Immature Gran # 0.18 Segmented Neutrophils 83 Band Neutrophils 3 Lymphocytes 8 L Monocytes 6 Nucleated RBCs # 0.00 Platelet Estimate Decreased Giant Platelets Immature Plt Fraction 12.2 H Hypochromasia Poikilocytosis Anisocytosis 2+ Macrocytosis 2+ Tear Drop Cells Acanthocytes (Spur) Few Morphology Comment INR PT Patient/Control Mix Fibrinogen Circ Anticoag PTT Cord ABG pH 7.303 Cord ABG pCO2 52.1 Cord ABG pO2 6.9 Cord ABG HCO3 25.2 Cord ABG Total CO2 26.8 Cord ABG Base Excess -1.9 Cord VBG pH 7.395 Cord VBG pCO2 36.6 Cord VBG pO2 26.2 Cord VBG HCO3 21.9 Cord VBG Total CO2 23.0 Cord VBG Base Excess -2.4 Sodium Potassium Chloride Carbon Dioxide Anion Gap BUN Creatinine GFR Calculation BUN/Creatinine Ratio Glucose Calculated Osmolality Uric Acid Calcium Magnesium Total Bilirubin AST ALT Alkaline Phosphatase Total Protein Albumin Globulin Albumin/Globulin Ratio Urine Color Urine Appearance Urine pH Ur Specific [place] Urine Protein Urine Glucose (UA) Urine Ketones Urine Blood Urine Nitrate Urine Bilirubin Urine Urobilinogen Urine Leukocytes Urine RBC Urine WBC Ur Squamous Epith Cells Urine Bacteria Urine Mucus Urine Yeast (Budding) Ur Culture Indicated? Urine Opiates Screen Ur Barbiturates Screen Ur Phencyclidine Scrn U Amphetamine/Methamph U Benzodiazepines Scrn U Cocaine Metab Screen U Cannabinoids Screen Blood Type Antibody Screen Crossmatch Blood Bank Comment 03/16/17 03/16/17 03/16/17 04:34 18:34 Unknown WBC RBC Hgb 9.5 L D Hct 26.7 L MCV MCH MCHC RDW Plt Count MPV Neut % (Auto) Lymph % (Auto) [place] % (Auto) Eos % (Auto) Baso % (Auto) Neut # (Auto) Lymph # (Auto) [place] # (Auto) Eos # (Auto) Baso # (Auto) Total Counted Immature Gran % Nucleated RBC % Immature Gran # Segmented Neutrophils Band Neutrophils Lymphocytes Monocytes Nucleated RBCs # Platelet Estimate Giant Platelets Immature Plt Fraction Hypochromasia Poikilocytosis Anisocytosis Macrocytosis Tear Drop Cells Acanthocytes (Spur) Morphology Comment INR PT Patient/Control Mix Fibrinogen Circ Anticoag PTT Cord ABG pH Cord ABG pCO2 Cord ABG pO2 Cord ABG HCO3 Cord ABG Total CO2 Cord ABG Base Excess Cord VBG pH Cord VBG pCO2 Cord VBG pO2 Cord VBG HCO3 Cord VBG Total CO2 Cord VBG Base Excess Sodium Potassium Chloride Carbon Dioxide Anion Gap BUN Creatinine GFR Calculation BUN/Creatinine Ratio Glucose Calculated Osmolality Uric Acid Calcium Magnesium Total Bilirubin AST ALT Alkaline Phosphatase Total Protein Albumin Globulin Albumin/Globulin Ratio Urine Color Urine Appearance Urine pH Ur Specific [place] Urine Protein Urine Glucose (UA) Urine Ketones Urine Blood Urine Nitrate Urine Bilirubin Urine Urobilinogen Urine Leukocytes Urine RBC Urine WBC Ur Squamous Epith Cells Urine Bacteria Urine Mucus Urine Yeast (Budding) Ur Culture Indicated? Urine Opiates Screen Ur Barbiturates Screen Ur Phencyclidine Scrn U Amphetamine/Methamph U Benzodiazepines Scrn U Cocaine Metab Screen U Cannabinoids Screen Blood Type Cancelled A POSITIVE Antibody Screen Cancelled Crossmatch See Detail Blood Bank Comment Cancelled 03/17/17 03/17/17 03/17/17 03:34 21:45 21:45 WBC 13.4 H 14.0 H RBC 2.73 L D 2.85 L Hgb 9.0 L 9.4 L Hct 25.3 L 27.2 L MCV 92.7 95.4 MCH 33 33 MCHC 35.6 34.6 RDW 15.6 15.8 Plt Count 84 L 97 L MPV 12.2 H 11.6 Neut % (Auto) 66.8 72.3 Lymph % (Auto) 22.0 19.1 L [place] % (Auto) 9.0 6.4 Eos % (Auto) 0.3 0.6 Baso % (Auto) 0.3 0.4 Neut # (Auto) 8.9 H 10.1 H Lymph # (Auto) 2.9 2.7 [place] # (Auto) 1.2 H 0.9 H Eos # (Auto) 0.0 0.1 Baso # (Auto) 0.0 0.1 Total Counted Immature Gran % 1.6 1.2 Nucleated RBC % 0.0 0.0 Immature Gran # 0.22 0.17 Segmented Neutrophils Band Neutrophils Lymphocytes Monocytes Nucleated RBCs # 0.00 0.00 Platelet Estimate Decreased Giant Platelets Immature Plt Fraction 0.0 0.0 Hypochromasia Poikilocytosis Anisocytosis Macrocytosis Tear Drop Cells Acanthocytes (Spur) Morphology Comment INR PT Patient/Control Mix Fibrinogen Circ Anticoag PTT Cord ABG pH Cord ABG pCO2 Cord ABG pO2 Cord ABG HCO3 Cord ABG Total CO2 Cord ABG Base Excess Cord VBG pH Cord VBG pCO2 Cord VBG pO2 Cord VBG HCO3 Cord VBG Total CO2 Cord VBG Base Excess Sodium 139 Potassium 3.6 Chloride 105 Carbon Dioxide 28 Anion Gap 9.6 BUN 20 H Creatinine 1.20 H GFR Calculation 72 BUN/Creatinine Ratio 16.00 Glucose 85 Calculated Osmolality 278.5 Uric Acid Calcium 8.5 Magnesium Total Bilirubin 0.40 AST 29 ALT 29 Alkaline Phosphatase 71 Total Protein 5.2 L Albumin 2.2 L Globulin 3.0 Albumin/Globulin Ratio 0.7 L Urine Color Urine Appearance Urine pH Ur Specific [place] Urine Protein Urine Glucose (UA) Urine Ketones Urine Blood Urine Nitrate Urine Bilirubin Urine Urobilinogen Urine Leukocytes Urine RBC Urine WBC Ur Squamous Epith Cells Urine Bacteria Urine Mucus Urine Yeast (Budding) Ur Culture Indicated? Urine Opiates Screen Ur Barbiturates Screen Ur Phencyclidine Scrn U Amphetamine/Methamph U Benzodiazepines Scrn U Cocaine Metab Screen U Cannabinoids Screen Blood Type Antibody Screen Crossmatch Blood Bank Comment 03/17/17 03/17/17 03/17/17 21:45 21:45 22:39 WBC RBC Hgb Hct MCV MCH MCHC RDW Plt Count MPV Neut % (Auto) Lymph % (Auto) [place] % (Auto) Eos % (Auto) Baso % (Auto) Neut # (Auto) Lymph # (Auto) [place] # (Auto) Eos # (Auto) Baso # (Auto) Total Counted Immature Gran % Nucleated RBC % Immature Gran # Segmented Neutrophils Band Neutrophils Lymphocytes Monocytes Nucleated RBCs # Platelet Estimate Giant Platelets Immature Plt Fraction Hypochromasia Poikilocytosis Anisocytosis Macrocytosis Tear Drop Cells Acanthocytes (Spur) Morphology Comment INR 0.9 PT Patient/Control Mix 9.8 Fibrinogen 184 L Circ Anticoag PTT 23.6 Cord ABG pH Cord ABG pCO2 Cord ABG pO2 Cord ABG HCO3 Cord ABG Total CO2 Cord ABG Base Excess Cord VBG pH Cord VBG pCO2 Cord VBG pO2 Cord VBG HCO3 Cord VBG Total CO2 Cord VBG Base Excess Sodium Potassium Chloride Carbon Dioxide Anion Gap BUN Creatinine GFR Calculation BUN/Creatinine Ratio Glucose Calculated Osmolality Uric Acid 6.1 H Calcium Magnesium 5.2 H Total Bilirubin AST ALT Alkaline Phosphatase Total Protein Albumin Globulin Albumin/Globulin Ratio Urine Color Urine Appearance Urine pH Ur Specific [place] Urine Protein Urine Glucose (UA) Urine Ketones Urine Blood Urine Nitrate Urine Bilirubin Urine Urobilinogen Urine Leukocytes Urine RBC Urine WBC Ur Squamous Epith Cells Urine Bacteria Urine Mucus Urine Yeast (Budding) Ur Culture Indicated? Urine Opiates Screen Ur Barbiturates Screen Ur Phencyclidine Scrn U Amphetamine/Methamph U Benzodiazepines Scrn U Cocaine Metab Screen U Cannabinoids Screen Blood Type Antibody Screen Crossmatch Blood Bank Comment 03/18/17 03/18/17 03/18/17 03:26 03:26 03:26 WBC 14.2 H RBC 2.92 L Hgb 9.6 L Hct 27.4 L MCV 93.8 MCH 33 MCHC 35.0 RDW 15.6 Plt Count 94 L MPV 11.5 Neut % (Auto) 73.9 Lymph % (Auto) 16.8 L [place] % (Auto) 6.8 Eos % (Auto) 1.0 Baso % (Auto) 0.6 Neut # (Auto) 10.5 H Lymph # (Auto) 2.4 [place] # (Auto) 1.0 H Eos # (Auto) 0.1 Baso # (Auto) 0.1 Total Counted Immature Gran % 0.9 Nucleated RBC % 0.0 Immature Gran # 0.13 Segmented Neutrophils Band Neutrophils Lymphocytes Monocytes Nucleated RBCs # 0.00 Platelet Estimate Decreased Giant Platelets Immature Plt Fraction 11.6 H Hypochromasia Poikilocytosis Anisocytosis Macrocytosis Tear Drop Cells Acanthocytes (Spur) Morphology Comment INR 0.9 PT Patient/Control Mix 9.5 Fibrinogen 198 L Circ Anticoag PTT 22.7 Cord ABG pH Cord ABG pCO2 Cord ABG pO2 Cord ABG HCO3 Cord ABG Total CO2 Cord ABG Base Excess Cord VBG pH Cord VBG pCO2 Cord VBG pO2 Cord VBG HCO3 Cord VBG Total CO2 Cord VBG Base Excess Sodium 139 Potassium 3.5 Chloride 103 Carbon Dioxide 28 Anion Gap 11.5 BUN 16 Creatinine 1.10 H GFR Calculation 80 BUN/Creatinine Ratio 14.00 Glucose 76 Calculated Osmolality 276.5 Uric Acid 6.0 Calcium 8.6 Magnesium Total Bilirubin 0.90 AST 33 ALT 34 Alkaline Phosphatase 79 Total Protein 5.4 L Albumin 2.4 L Globulin 3.0 Albumin/Globulin Ratio 0.8 L Urine Color Urine Appearance Urine pH Ur Specific [place] Urine Protein Urine Glucose (UA) Urine Ketones Urine Blood Urine Nitrate Urine Bilirubin Urine Urobilinogen Urine Leukocytes Urine RBC Urine WBC Ur Squamous Epith Cells Urine Bacteria Urine Mucus Urine Yeast (Budding) Ur Culture Indicated? Urine Opiates Screen Ur Barbiturates Screen Ur Phencyclidine Scrn U Amphetamine/Methamph U Benzodiazepines Scrn U Cocaine Metab Screen U Cannabinoids Screen Blood Type Antibody Screen Crossmatch Blood Bank Comment 03/18/17 03/18/17 03/18/17 03:26 06:45 06:45 WBC 13.7 H RBC 3.18 L Hgb 10.4 L Hct 29.9 L MCV 94.0 MCH 33 MCHC 34.8 RDW 15.3 Plt Count 102 L MPV 11.8 Neut % (Auto) 77.5 H Lymph % (Auto) 14.0 L [place] % (Auto) 6.1 Eos % (Auto) 1.2 Baso % (Auto) 0.5 Neut # (Auto) 10.6 H Lymph # (Auto) 1.9 [place] # (Auto) 0.8 Eos # (Auto) 0.2 Baso # (Auto) 0.1 Total Counted Immature Gran % 0.7 Nucleated RBC % 0.1 Immature Gran # 0.09 Segmented Neutrophils Band Neutrophils Lymphocytes Monocytes Nucleated RBCs # 0.02 Platelet Estimate Giant Platelets Immature Plt Fraction 10.6 H Hypochromasia Poikilocytosis Anisocytosis Macrocytosis Tear Drop Cells Acanthocytes (Spur) Morphology Comment INR PT Patient/Control Mix Fibrinogen 206 Circ Anticoag PTT Cord ABG pH Cord ABG pCO2 Cord ABG pO2 Cord ABG HCO3 Cord ABG Total CO2 Cord ABG Base Excess Cord VBG pH Cord VBG pCO2 Cord VBG pO2 Cord VBG HCO3 Cord VBG Total CO2 Cord VBG Base Excess Sodium Potassium Chloride Carbon Dioxide Anion Gap BUN Creatinine GFR Calculation BUN/Creatinine Ratio Glucose Calculated Osmolality Uric Acid Calcium Magnesium 7.8 H Total Bilirubin AST ALT Alkaline Phosphatase Total Protein Albumin Globulin Albumin/Globulin Ratio Urine Color Urine Appearance Urine pH Ur Specific [place] Urine Protein Urine Glucose (UA) Urine Ketones Urine Blood Urine Nitrate Urine Bilirubin Urine Urobilinogen Urine Leukocytes Urine RBC Urine WBC Ur Squamous Epith Cells Urine Bacteria Urine Mucus Urine Yeast (Budding) Ur Culture Indicated? Urine Opiates Screen Ur Barbiturates Screen Ur Phencyclidine Scrn U Amphetamine/Methamph U Benzodiazepines Scrn U Cocaine Metab Screen U Cannabinoids Screen Blood Type Antibody Screen Crossmatch Blood Bank Comment 03/18/17 03/18/17 03/18/17 06:45 06:45 10:35 WBC 13.6 H RBC 3.32 L Hgb 10.8 L Hct 30.9 L MCV 93.1 MCH 33 MCHC 35.0 RDW 15.3 Plt Count 100 L MPV 11.8 Neut % (Auto) 81.6 H Lymph % (Auto) 9.2 L [place] % (Auto) 7.0 Eos % (Auto) 1.0 Baso % (Auto) 0.4 Neut # (Auto) 11.1 H Lymph # (Auto) 1.3 L [place] # (Auto) 1.0 H Eos # (Auto) 0.1 Baso # (Auto) 0.1 Total Counted Immature Gran % 0.8 Nucleated RBC % 0.0 Immature Gran # 0.11 Segmented Neutrophils Band Neutrophils Lymphocytes Monocytes Nucleated RBCs # 0.00 Platelet Estimate Giant Platelets Immature Plt Fraction 9.5 H Hypochromasia Poikilocytosis Anisocytosis Macrocytosis Tear Drop Cells Acanthocytes (Spur) Morphology Comment INR 0.9 PT Patient/Control Mix 9.5 Fibrinogen 206 Circ Anticoag PTT 23.3 Cord ABG pH Cord ABG pCO2 Cord ABG pO2 Cord ABG HCO3 Cord ABG Total CO2 Cord ABG Base Excess Cord VBG pH Cord VBG pCO2 Cord VBG pO2 Cord VBG HCO3 Cord VBG Total CO2 Cord VBG Base Excess Sodium 137 Potassium 3.4 L Chloride 101 Carbon Dioxide 29 Anion Gap 10.4 BUN 15 Creatinine 1.00 GFR Calculation 90 BUN/Creatinine Ratio 15.00 Glucose 77 Calculated Osmolality 272.8 L Uric Acid 6.3 H Calcium 8.4 L Magnesium Total Bilirubin 0.40 AST 32 ALT 33 Alkaline Phosphatase 78 Total Protein 5.6 L Albumin 2.4 L Globulin 3.2 Albumin/Globulin Ratio 0.7 L Urine Color Urine Appearance Urine pH Ur Specific [place] Urine Protein Urine Glucose (UA) Urine Ketones Urine Blood Urine Nitrate Urine Bilirubin Urine Urobilinogen Urine Leukocytes Urine RBC Urine WBC Ur Squamous Epith Cells Urine Bacteria Urine Mucus Urine Yeast (Budding) Ur Culture Indicated? Urine Opiates Screen Ur Barbiturates Screen Ur Phencyclidine Scrn U Amphetamine/Methamph U Benzodiazepines Scrn U Cocaine Metab Screen U Cannabinoids Screen Blood Type Antibody Screen Crossmatch Blood Bank Comment 03/18/17 03/18/17 03/18/17 10:35 10:35 10:35 WBC RBC Hgb Hct MCV MCH MCHC RDW Plt Count MPV Neut % (Auto) Lymph % (Auto) [place] % (Auto) Eos % (Auto) Baso % (Auto) Neut # (Auto) Lymph # (Auto) [place] # (Auto) Eos # (Auto) Baso # (Auto) Total Counted Immature Gran % Nucleated RBC % Immature Gran # Segmented Neutrophils Band Neutrophils Lymphocytes Monocytes Nucleated RBCs # Platelet Estimate Giant Platelets Immature Plt Fraction Hypochromasia Poikilocytosis Anisocytosis Macrocytosis Tear Drop Cells Acanthocytes (Spur) Morphology Comment INR 0.9 PT Patient/Control Mix 9.4 Fibrinogen 217 Circ Anticoag PTT 23.8 Cord ABG pH Cord ABG pCO2 Cord ABG pO2 Cord ABG HCO3 Cord ABG Total CO2 Cord ABG Base Excess Cord VBG pH Cord VBG pCO2 Cord VBG pO2 Cord VBG HCO3 Cord VBG Total CO2 Cord VBG Base Excess Sodium 137 Potassium 3.5 Chloride 100 Carbon Dioxide 31 Anion Gap 9.5 BUN 14 Creatinine 1.00 GFR Calculation 90 BUN/Creatinine Ratio 14.00 Glucose 99 Calculated Osmolality 273.8 Uric Acid 6.8 H Calcium 8.5 Magnesium 6.2 H Total Bilirubin 0.40 AST 30 ALT 35 Alkaline Phosphatase 82 Total Protein 5.8 L Albumin 2.4 L Globulin 3.4 Albumin/Globulin Ratio 0.7 L Urine Color Urine Appearance Urine pH Ur Specific [place] Urine Protein Urine Glucose (UA) Urine Ketones Urine Blood Urine Nitrate Urine Bilirubin Urine Urobilinogen Urine Leukocytes Urine RBC Urine WBC Ur Squamous Epith Cells Urine Bacteria Urine Mucus Urine Yeast (Budding) Ur Culture Indicated? Urine Opiates Screen Ur Barbiturates Screen Ur Phencyclidine Scrn U Amphetamine/Methamph U Benzodiazepines Scrn U Cocaine Metab Screen U Cannabinoids Screen Blood Type Antibody Screen Crossmatch Blood Bank Comment 03/18/17 03/18/17 03/18/17 13:45 13:45 13:45 WBC 12.2 H RBC 3.03 L Hgb 10.1 L Hct 28.3 L MCV 93.4 MCH 33 MCHC 35.7 RDW 15.2 Plt Count 99 L MPV 11.8 Neut % (Auto) 80.1 H Lymph % (Auto) 10.7 L [place] % (Auto) 7.1 Eos % (Auto) 1.1 Baso % (Auto) 0.3 Neut # (Auto) 9.8 H Lymph # (Auto) 1.3 L [place] # (Auto) 0.9 H Eos # (Auto) 0.1 Baso # (Auto) 0.0 Total Counted Immature Gran % 0.7 Nucleated RBC % 0.0 Immature Gran # 0.08 Segmented Neutrophils Band Neutrophils Lymphocytes Monocytes Nucleated RBCs # 0.00 Platelet Estimate Decreased Giant Platelets Immature Plt Fraction 8.6 H Hypochromasia Poikilocytosis Anisocytosis Macrocytosis Tear Drop Cells Acanthocytes (Spur) Morphology Comment INR 0.9 PT Patient/Control Mix 9.4 Fibrinogen 266 Circ Anticoag PTT 23.8 Cord ABG pH Cord ABG pCO2 Cord ABG pO2 Cord ABG HCO3 Cord ABG Total CO2 Cord ABG Base Excess Cord VBG pH Cord VBG pCO2 Cord VBG pO2 Cord VBG HCO3 Cord VBG Total CO2 Cord VBG Base Excess Sodium 138 Potassium 3.7 Chloride 100 Carbon Dioxide 33 H Anion Gap 8.7 BUN 16 Creatinine 1.20 H GFR Calculation 72 BUN/Creatinine Ratio 13.00 Glucose 85 Calculated Osmolality 274.7 Uric Acid 6.4 H Calcium 8.2 L Magnesium Total Bilirubin 0.40 AST 29 ALT 37 Alkaline Phosphatase 80 Total Protein 5.3 L Albumin 2.3 L Globulin 3.0 Albumin/Globulin Ratio 0.7 L Urine Color Urine Appearance Urine pH Ur Specific [place] Urine Protein Urine Glucose (UA) Urine Ketones Urine Blood Urine Nitrate Urine Bilirubin Urine Urobilinogen Urine Leukocytes Urine RBC Urine WBC Ur Squamous Epith Cells Urine Bacteria Urine Mucus Urine Yeast (Budding) Ur Culture Indicated? Urine Opiates Screen Ur Barbiturates Screen Ur Phencyclidine Scrn U Amphetamine/Methamph U Benzodiazepines Scrn U Cocaine Metab Screen U Cannabinoids Screen Blood Type Antibody Screen Crossmatch Blood Bank Comment 03/18/17 03/18/17 03/18/17 17:30 17:30 17:30 WBC 13.4 H RBC 3.50 L Hgb 11.6 L Hct 32.8 L MCV 93.7 MCH 33 MCHC 35.4 RDW 15.3 Plt Count 108 L MPV 11.0 Neut % (Auto) 78.4 H Lymph % (Auto) 14.1 L [place] % (Auto) 5.5 Eos % (Auto) 1.1 Baso % (Auto) 0.3 Neut # (Auto) 10.5 H Lymph # (Auto) 1.9 [place] # (Auto) 0.7 Eos # (Auto) 0.2 Baso # (Auto) 0.0 Total Counted Immature Gran % 0.6 Nucleated RBC % 0.0 Immature Gran # 0.08 Segmented Neutrophils Band Neutrophils Lymphocytes Monocytes Nucleated RBCs # 0.00 Platelet Estimate Giant Platelets Immature Plt Fraction 0.0 Hypochromasia Poikilocytosis Anisocytosis Macrocytosis Tear Drop Cells Acanthocytes (Spur) Morphology Comment INR 0.9 PT Patient/Control Mix 9.3 Fibrinogen 326 Circ Anticoag PTT 25.8 Cord ABG pH Cord ABG pCO2 Cord ABG pO2 Cord ABG HCO3 Cord ABG Total CO2 Cord ABG Base Excess Cord VBG pH Cord VBG pCO2 Cord VBG pO2 Cord VBG HCO3 Cord VBG Total CO2 Cord VBG Base Excess Sodium 136 Potassium 3.5 Chloride 97 L Carbon Dioxide 33 H Anion Gap 9.5 BUN 19 H Creatinine 1.30 H GFR Calculation 65 BUN/Creatinine Ratio 14.00 Glucose 102 Calculated Osmolality 273.0 Uric Acid 6.6 H Calcium 8.6 Magnesium Total Bilirubin 0.40 AST 34 ALT 42 Alkaline Phosphatase 96 Total Protein 6.3 L Albumin 2.7 L Globulin 3.6 H Albumin/Globulin Ratio 0.7 L Urine Color Urine Appearance Urine pH Ur Specific [place] Urine Protein Urine Glucose (UA) Urine Ketones Urine Blood Urine Nitrate Urine Bilirubin Urine Urobilinogen Urine Leukocytes Urine RBC Urine WBC Ur Squamous Epith Cells Urine Bacteria Urine Mucus Urine Yeast (Budding) Ur Culture Indicated? Urine Opiates Screen Ur Barbiturates Screen Ur Phencyclidine Scrn U Amphetamine/Methamph U Benzodiazepines Scrn U Cocaine Metab Screen U Cannabinoids Screen Blood Type Antibody Screen Crossmatch Blood Bank Comment 03/18/17 03/18/17 03/18/17 17:30 21:41 21:41 WBC 11.3 RBC 3.16 L Hgb 10.3 L Hct 29.5 L MCV 93.4 MCH 33 MCHC 34.9 RDW 14.9 Plt Count 112 L MPV 12.0 Neut % (Auto) 70.9 Lymph % (Auto) 19.7 L [place] % (Auto) 7.1 Eos % (Auto) 1.4 Baso % (Auto) 0.3 Neut # (Auto) 8.0 H Lymph # (Auto) 2.2 [place] # (Auto) 0.8 Eos # (Auto) 0.2 Baso # (Auto) 0.0 Total Counted Immature Gran % 0.6 Nucleated RBC % 0.0 Immature Gran # 0.07 Segmented Neutrophils Band Neutrophils Lymphocytes Monocytes Nucleated RBCs # 0.00 Platelet Estimate Giant Platelets Immature Plt Fraction 0.0 Hypochromasia Poikilocytosis Anisocytosis Macrocytosis Tear Drop Cells Acanthocytes (Spur) Morphology Comment INR 0.9 PT Patient/Control Mix 9.4 Fibrinogen 312 Circ Anticoag PTT 25.0 Cord ABG pH Cord ABG pCO2 Cord ABG pO2 Cord ABG HCO3 Cord ABG Total CO2 Cord ABG Base Excess Cord VBG pH Cord VBG pCO2 Cord VBG pO2 Cord VBG HCO3 Cord VBG Total CO2 Cord VBG Base Excess Sodium Potassium Chloride Carbon Dioxide Anion Gap BUN Creatinine GFR Calculation BUN/Creatinine Ratio Glucose Calculated Osmolality Uric Acid Calcium Magnesium 5.7 H Total Bilirubin AST ALT Alkaline Phosphatase Total Protein Albumin Globulin Albumin/Globulin Ratio Urine Color Urine Appearance Urine pH Ur Specific [place] Urine Protein Urine Glucose (UA) Urine Ketones Urine Blood Urine Nitrate Urine Bilirubin Urine Urobilinogen Urine Leukocytes Urine RBC Urine WBC Ur Squamous Epith Cells Urine Bacteria Urine Mucus Urine Yeast (Budding) Ur Culture Indicated? Urine Opiates Screen Ur Barbiturates Screen Ur Phencyclidine Scrn U Amphetamine/Methamph U Benzodiazepines Scrn U Cocaine Metab Screen U Cannabinoids Screen Blood Type Antibody Screen Crossmatch Blood Bank Comment 03/18/17 03/18/17 03/19/17 21:41 23:04 01:49 WBC 10.5 RBC 3.06 L Hgb 9.9 L Hct 28.7 L MCV 93.8 MCH 32 MCHC 34.5 RDW 15.0 Plt Count 109 L MPV 11.9 Neut % (Auto) 67.1 Lymph % (Auto) 23.3 [place] % (Auto) 6.5 Eos % (Auto) 2.0 Baso % (Auto) 0.4 Neut # (Auto) 7.1 Lymph # (Auto) 2.5 [place] # (Auto) 0.7 Eos # (Auto) 0.2 Baso # (Auto) 0.0 Total Counted Immature Gran % 0.7 Nucleated RBC % 0.0 Immature Gran # 0.07 Segmented Neutrophils Band Neutrophils Lymphocytes Monocytes Nucleated RBCs # 0.00 Platelet Estimate Giant Platelets Immature Plt Fraction 0.0 Hypochromasia Poikilocytosis Anisocytosis Macrocytosis Tear Drop Cells Acanthocytes (Spur) Morphology Comment INR PT Patient/Control Mix Fibrinogen Circ Anticoag PTT Cord ABG pH Cord ABG pCO2 Cord ABG pO2 Cord ABG HCO3 Cord ABG Total CO2 Cord ABG Base Excess Cord VBG pH Cord VBG pCO2 Cord VBG pO2 Cord VBG HCO3 Cord VBG Total CO2 Cord VBG Base Excess Sodium 138 Potassium 3.6 Chloride 99 Carbon Dioxide 34 H Anion Gap 8.6 BUN 25 H Creatinine 1.40 H GFR Calculation 60 BUN/Creatinine Ratio 17.00 Glucose 84 Calculated Osmolality 277.7 Uric Acid 7.1 H Calcium 8.2 L Magnesium 3.9 H Total Bilirubin < 0.39 AST 29 ALT 37 Alkaline Phosphatase 84 Total Protein 5.6 L Albumin 2.4 L Globulin 3.2 Albumin/Globulin Ratio 0.7 L Urine Color Urine Appearance Urine pH Ur Specific [place] Urine Protein Urine Glucose (UA) Urine Ketones Urine Blood Urine Nitrate Urine Bilirubin Urine Urobilinogen Urine Leukocytes Urine RBC Urine WBC Ur Squamous Epith Cells Urine Bacteria Urine Mucus Urine Yeast (Budding) Ur Culture Indicated? Urine Opiates Screen Ur Barbiturates Screen Ur Phencyclidine Scrn U Amphetamine/Methamph U Benzodiazepines Scrn U Cocaine Metab Screen U Cannabinoids Screen Blood Type Antibody Screen Crossmatch Blood Bank Comment 03/19/17 03/19/17 03/19/17 01:49 01:49 05:26 WBC 10.1 RBC 3.01 L Hgb 9.8 L Hct 28.3 L MCV 94.0 MCH 33 MCHC 34.6 RDW 14.9 Plt Count 114 L MPV 11.2 Neut % (Auto) 65.1 Lymph % (Auto) 24.9 [place] % (Auto) 6.9 Eos % (Auto) 2.0 Baso % (Auto) 0.5 Neut # (Auto) 6.6 Lymph # (Auto) 2.5 [place] # (Auto) 0.7 Eos # (Auto) 0.2 Baso # (Auto) 0.1 Total Counted Immature Gran % 0.6 Nucleated RBC % 0.0 Immature Gran # 0.06 Segmented Neutrophils Band Neutrophils Lymphocytes Monocytes Nucleated RBCs # 0.00 Platelet Estimate Giant Platelets Immature Plt Fraction 0.0 Hypochromasia Poikilocytosis Anisocytosis Macrocytosis Tear Drop Cells Acanthocytes (Spur) Morphology Comment INR 0.9 PT Patient/Control Mix 9.6 Fibrinogen 293 Circ Anticoag PTT 26.7 Cord ABG pH Cord ABG pCO2 Cord ABG pO2 Cord ABG HCO3 Cord ABG Total CO2 Cord ABG Base Excess Cord VBG pH Cord VBG pCO2 Cord VBG pO2 Cord VBG HCO3 Cord VBG Total CO2 Cord VBG Base Excess Sodium 139 Potassium 3.6 Chloride 100 Carbon Dioxide 31 Anion Gap 11.6 BUN 25 H Creatinine 1.20 H GFR Calculation 72 BUN/Creatinine Ratio 20.00 Glucose 81 Calculated Osmolality 279.5 Uric Acid 7.2 H Calcium 8.0 L Magnesium Total Bilirubin 0.40 AST 25 ALT 33 Alkaline Phosphatase 75 Total Protein 5.4 L Albumin 2.3 L Globulin 3.1 Albumin/Globulin Ratio 0.7 L Urine Color Urine Appearance Urine pH Ur Specific [place] Urine Protein Urine Glucose (UA) Urine Ketones Urine Blood Urine Nitrate Urine Bilirubin Urine Urobilinogen Urine Leukocytes Urine RBC Urine WBC Ur Squamous Epith Cells Urine Bacteria Urine Mucus Urine Yeast (Budding) Ur Culture Indicated? Urine Opiates Screen Ur Barbiturates Screen Ur Phencyclidine Scrn U Amphetamine/Methamph U Benzodiazepines Scrn U Cocaine Metab Screen U Cannabinoids Screen Blood Type Antibody Screen Crossmatch Blood Bank Comment 03/19/17 03/19/17 03/19/17 05:26 05:26 09:55 WBC 9.7 RBC 2.95 L Hgb 9.6 L Hct 27.5 L MCV 93.2 MCH 33 MCHC 34.9 RDW 14.9 Plt Count 116 L MPV 12.2 H Neut % (Auto) 70.5 Lymph % (Auto) 20.1 L [place] % (Auto) 6.8 Eos % (Auto) 1.5 Baso % (Auto) 0.4 Neut # (Auto) 6.9 Lymph # (Auto) 2.0 [place] # (Auto) 0.7 Eos # (Auto) 0.2 Baso # (Auto) 0.0 Total Counted Immature Gran % 0.7 Nucleated RBC % 0.0 Immature Gran # 0.07 Segmented Neutrophils Band Neutrophils Lymphocytes Monocytes Nucleated RBCs # 0.00 Platelet Estimate Giant Platelets Immature Plt Fraction 0.0 Hypochromasia Poikilocytosis Anisocytosis Macrocytosis Tear Drop Cells Acanthocytes (Spur) Morphology Comment INR 0.9 PT Patient/Control Mix 9.7 Fibrinogen 312 Circ Anticoag PTT 26.8 Cord ABG pH Cord ABG pCO2 Cord ABG pO2 Cord ABG HCO3 Cord ABG Total CO2 Cord ABG Base Excess Cord VBG pH Cord VBG pCO2 Cord VBG pO2 Cord VBG HCO3 Cord VBG Total CO2 Cord VBG Base Excess Sodium 138 Potassium 3.6 Chloride 100 Carbon Dioxide 32 Anion Gap 9.6 BUN 23 H Creatinine 1.20 H GFR Calculation 72 BUN/Creatinine Ratio 19.00 Glucose 80 Calculated Osmolality 277.7 Uric Acid 7.3 H Calcium 7.9 L Magnesium Total Bilirubin 0.70 AST 23 ALT 29 Alkaline Phosphatase 71 Total Protein 5.2 L Albumin 2.2 L Globulin 3.0 Albumin/Globulin Ratio 0.7 L Urine Color Urine Appearance Urine pH Ur Specific [place] Urine Protein Urine Glucose (UA) Urine Ketones Urine Blood Urine Nitrate Urine Bilirubin Urine Urobilinogen Urine Leukocytes Urine RBC Urine WBC Ur Squamous Epith Cells Urine Bacteria Urine Mucus Urine Yeast (Budding) Ur Culture Indicated? Urine Opiates Screen Ur Barbiturates Screen Ur Phencyclidine Scrn U Amphetamine/Methamph U Benzodiazepines Scrn U Cocaine Metab Screen U Cannabinoids Screen Blood Type Antibody Screen Crossmatch Blood Bank Comment 03/19/17 03/19/17 03/19/17 09:55 13:07 13:07 WBC 10.2 RBC 3.03 L Hgb 9.8 L Hct 28.7 L MCV 94.7 MCH 32 MCHC 34.1 RDW 14.9 Plt Count 121 L MPV 11.6 Neut % (Auto) 72.6 Lymph % (Auto) 18.6 L [place] % (Auto) 5.9 Eos % (Auto) 1.7 Baso % (Auto) 0.4 Neut # (Auto) 7.4 Lymph # (Auto) 1.9 [place] # (Auto) 0.6 Eos # (Auto) 0.2 Baso # (Auto) 0.0 Total Counted Immature Gran % 0.8 Nucleated RBC % 0.0 Immature Gran # 0.08 Segmented Neutrophils Band Neutrophils Lymphocytes Monocytes Nucleated RBCs # 0.00 Platelet Estimate Giant Platelets Immature Plt Fraction 0.0 Hypochromasia Poikilocytosis Anisocytosis Macrocytosis Tear Drop Cells Acanthocytes (Spur) Morphology Comment INR PT Patient/Control Mix Fibrinogen Circ Anticoag PTT Cord ABG pH Cord ABG pCO2 Cord ABG pO2 Cord ABG HCO3 Cord ABG Total CO2 Cord ABG Base Excess Cord VBG pH Cord VBG pCO2 Cord VBG pO2 Cord VBG HCO3 Cord VBG Total CO2 Cord VBG Base Excess Sodium 140 138 Potassium 3.5 3.2 L Chloride 102 101 Carbon Dioxide 33 H 30 Anion Gap 8.5 10.2 BUN 22 H 21 H Creatinine 1.20 H 1.20 H GFR Calculation 72 72 BUN/Creatinine Ratio 18.00 17.00 Glucose 76 124 H Calculated Osmolality 280.4 278.7 Uric Acid Calcium 8.0 L 8.1 L Magnesium Total Bilirubin < 0.39 0.60 AST 24 24 ALT 31 29 Alkaline Phosphatase 76 75 Total Protein 5.1 L 5.3 L Albumin 2.2 L 2.3 L Globulin 2.9 3.0 Albumin/Globulin Ratio 0.7 L 0.7 L Urine Color Urine Appearance Urine pH Ur Specific [place] Urine Protein Urine Glucose (UA) Urine Ketones Urine Blood Urine Nitrate Urine Bilirubin Urine Urobilinogen Urine Leukocytes Urine RBC Urine WBC Ur Squamous Epith Cells Urine Bacteria Urine Mucus Urine Yeast (Budding) Ur Culture Indicated? Urine Opiates Screen Ur Barbiturates Screen Ur Phencyclidine Scrn U Amphetamine/Methamph U Benzodiazepines Scrn U Cocaine Metab Screen U Cannabinoids Screen Blood Type Antibody Screen Crossmatch Blood Bank Comment 03/20/17 03/20/17 05:27 06:21 WBC 10.8 RBC 3.26 L Hgb 10.5 L Hct 31.9 L MCV 97.9 MCH 32 MCHC 32.9 RDW 14.9 Plt Count 139 MPV 11.8 Neut % (Auto) 66.6 Lymph % (Auto) 23.5 [place] % (Auto) 7.7 Eos % (Auto) 1.2 Baso % (Auto) 0.4 Neut # (Auto) 7.2 Lymph # (Auto) 2.5 [place] # (Auto) 0.8 Eos # (Auto) 0.1 Baso # (Auto) 0.0 Total Counted Immature Gran % 0.6 Nucleated RBC % 0.0 Immature Gran # 0.06 Segmented Neutrophils Band Neutrophils Lymphocytes Monocytes Nucleated RBCs # 0.00 Platelet Estimate Giant Platelets Immature Plt Fraction 0.0 Hypochromasia Poikilocytosis Anisocytosis Macrocytosis Tear Drop Cells Acanthocytes (Spur) Morphology Comment INR PT Patient/Control Mix Fibrinogen Circ Anticoag PTT Cord ABG pH Cord ABG pCO2 Cord ABG pO2 Cord ABG HCO3 Cord ABG Total CO2 Cord ABG Base Excess Cord VBG pH Cord VBG pCO2 Cord VBG pO2 Cord VBG HCO3 Cord VBG Total CO2 Cord VBG Base Excess Sodium 139 Potassium 4.1 Chloride 103 Carbon Dioxide 33 H Anion Gap 7.1 BUN 19 H Creatinine 1.20 H GFR Calculation 72 BUN/Creatinine Ratio 15.00 Glucose 68 L Calculated Osmolality 276.5 Uric Acid Calcium 8.4 L Magnesium Total Bilirubin 0.40 AST 22 ALT 28 Alkaline Phosphatase 72 Total Protein 5.2 L Albumin 2.3 L Globulin 2.9 Albumin/Globulin Ratio 0.7 L Urine Color Urine Appearance Urine pH Ur Specific [place] Urine Protein Urine Glucose (UA) Urine Ketones Urine Blood Urine Nitrate Urine Bilirubin Urine Urobilinogen Urine Leukocytes Urine RBC Urine WBC Ur Squamous Epith Cells Urine Bacteria Urine Mucus Urine Yeast (Budding) Ur Culture Indicated? Urine Opiates Screen Ur Barbiturates Screen Ur Phencyclidine Scrn U Amphetamine/Methamph U Benzodiazepines Scrn U Cocaine Metab Screen U Cannabinoids Screen Blood Type Antibody Screen Crossmatch Blood Bank Comment Labs on day of discharge: Labs from last 24 hours 03/20/17 03/20/17 06:21 05:27 WBC 10.8 RBC 3.26 L Hgb 10.5 L Hct 31.9 L MCV 97.9 MCH 32 MCHC 32.9 RDW 14.9 Plt Count 139 MPV 11.8 Neut % (Auto) 66.6 Lymph % (Auto) 23.5 [place] % (Auto) 7.7 Eos % (Auto) 1.2 Baso % (Auto) 0.4 Neut # (Auto) 7.2 Lymph # (Auto) 2.5 [place] # (Auto) 0.8 Eos # (Auto) 0.1 Baso # (Auto) 0.0 Immature Gran % 0.6 Nucleated RBC % 0.0 Immature Gran # 0.06 Nucleated RBCs # 0.00 Immature Plt Fraction 0.0 Sodium 139 Potassium 4.1 Chloride 103 Carbon Dioxide 33 H Anion Gap 7.1 BUN 19 H Creatinine 1.20 H GFR Calculation 72 BUN/Creatinine Ratio 15.00 Glucose 68 L Calculated Osmolality 276.5 Calcium 8.4 L Total Bilirubin 0.40 AST 22 ALT 28 Alkaline Phosphatase 72 Total Protein 5.2 L Albumin 2.3 L Globulin 2.9 Albumin/Globulin Ratio 0.7 L DS: Provider Date of admission: 03/15/17 09:35 Patient presented Primary care physician: . No PCP Attending physician on admission: Essence George MD Consults: 03/15/17 09:35 Consult to Anesthesiology [CONS] Routine Consulting Provider: Reason for Anesthesiology: Epidural Consult Comment: Epidural for pain managment 03/15/17 14:11 Consult to Pneumatic Press Hand [CONS] Routine Consult Pneumatic Press Hand: Breast Feeding 03/15/17 14:15 Consult to Case Mgmt/Social Srvs [CONS] Routine Reason for Case Mgmt/Social Srvs: Psychiatric Management Other Consult Comment: urine drug screen + for marijuana, late care, depression- poss counselling 03/17/17 23:31 Consult to Physician [CONS] Routine Comment: Consulting Provider: Xu Chanel Consulting Provider Notified: Yes When should Consulting Provider be notified: In am Discharging clinician: [email or web address] Benavidez
== END 2017-03-20 17:45 | disposition home or self-care (01) | DRG 560 ==
LOC: N.RAD 13:44 → N.LD 13:48 → N.OB 03-15 20:06 → N.CC 03-18 00:22 → N.OB 03-19 11:37
PROVIDERS: ADMIT Obstetrics & Gynecology; ATTEND Obstetrics & Gynecology